=== PATIENT | female | born 1965 | race Caucasian/White ===

== ENCOUNTER 2020-07-09 13:08 | Outpatient (REF) | payer OTHER, SELFPAY ==
--- NOTE | ~2020-07-09 | MM_ITS ---
EXAMINATION: MM SCREENING DIGITAL BREAST TOMOSYNTHESIS, BILATERAL CLINICAL INFORMATION: Screening. Asymptomatic. The lifetime risk of breast cancer based on the Tyrer-Cuzick Model is 8%. COMPARISON: Mammography: 07/04/2019, 12/10/2017, 03/06/2016 TECHNIQUE: Digital breast tomosynthesis is performed in both the craniocaudal and mediolateral oblique views along with computer-aided detection (CAD). Synthesized 2D images are generated from the tomosynthesis. FINDINGS: There are scattered areas of fibroglandular density (ACR BI-RADS breast composition Category b). There are no significant masses, abnormal calcifications, or other abnormalities. Parenchymal pattern is similar to prior studies. No developing density. No significant changes. MM/MM tomosynthesis screening BI IMPRESSION: No mammographic evidence of malignancy. ASSESSMENT: BI-RADS 1: Negative RECOMMENDATION: Routine annual mammography screening. This patient's information was entered into a reminder system with a target due date for their next mammogram.
== END 2020-07-09 13:09 | disposition home or self-care (01) ==
LOC: HO.MAMMO 13:08
PROVIDERS: PCP Internal Medicine; Visit Provider Internal Medicine
DX: Z12.31 Encounter for screening mammogram for malignant neoplasm of breast (principal)
CPT/HCPCS: 77063; 77067

== ENCOUNTER 2020-07-22 11:52 | Outpatient (REF) | payer OTHER, SELFPAY ==
[2020-07-22 13:31] LABS: Basophils Percent Auto 0.4 % (0-2); Eosinophils Percent Auto 1.7 % (0-4); Hematocrit 38.3 % (37-47); Hemoglobin 11.9 g/dl (12.0-16.0); Imm Gran Abs Auto 0.01 X10*3/uL (0.00-0.03); Imm Gran Pct Auto 0.4 % (0.0-0.4); Lymphocytes Absolute Auto 0.9 X10*3/uL (1.2-4.9); Lymphocytes Percent Auto 40.9 % (20-40); MANUAL DIFF FLAG SCAN; Mean Corpuscular HGB Conc 31.1 g/dl (31.0-35.0); Mean Corpuscular Hemoglobin 30.3 pg (27.0-33.0); Mean Corpuscular Volume 97.5 fL (80-98); Mean Platelet Volume 9.2 fL (9.4-12.3); Monocytes Absolute Auto 0.3 X10*3/uL (0.1-1.2); Neutrophils Percent Auto 43.6 % (45-73); Platelet Count 287 X10*3/uL (160-400); Red Blood Count 3.93 X10*6/uL (4.20-5.50); SCAN SMEAR FLAG 1
[2020-07-22 13:32] LABS: White Blood Count 2.3 X10*3/uL (4.8-10.8)
[2020-07-22 14:05] LABS: Alanine Aminotransferase 16 U/L (0-31); Albumin Level 4.2 g/dL (3.5-5.0); Alkaline Phosphatase 81 U/L (39-117); Anion Gap 12 (12-20); Aspartate Amino Transferase 17 U/L (5-31); Bilirubin Total 0.8 mg/dL (0.0-1.0); Blood Urea Nitrogen 13 mg/dL (9-16); Calcium 9.1 mg/dL (8.4-10.2); Carbon Dioxide 27 mmol/L (22-29); Chloride 107 mmol/L (96-108); Cholesterol 229 mg/dL; Estimated Glomerular Filt Rate > 60; Glucose Random 82 mg/dL (60-115); HDL Cholesterol 75 mg/dL; LDL Cholesterol Calculated 142 mg/dl; Sodium 141 mmol/L (135-145); Total Protein 6.8 g/dL (6.5-8.0); Triglycerides 61 mg/dL
[2020-07-22 14:10] LABS: Glucose Urine UA NEG (NEG); Leukocyte Esterase Urine NEG (NEG); Nitrite Urine NEG (NEG); PH 5.5 (5.0-8.0); Specific Gravity - Urine >= 1.030 (1.005-1.025); Urine Blood TRACE (NEG); Urine Ketones NEG (NEG); Urine Protein NEG (NEG-TRACE)
[2020-07-22 14:15] LABS: Appearance Urine HAZY; Color Urine YELLOW
[2020-07-22 14:28] LABS: Free T4 (Free Thyroxine) 0.74 ng/dL (0.71-1.85); Thyroid Stimulating Hormone 1.86 uIU/mL (0.32-4.0); Vitamin D 25-OH Total 8.1 ng/mL (>30)
[2020-07-22 14:36] LABS: Folate 14.9 ng/mL (> or = 4.0); Vitamin B12 200 pg/mL (200-900)
[2020-07-22 14:59] LABS: Mucus Urine 3+ /LPF; RBC Urine 0-2 /HPF (0); Squamous Epithelial Cell Urine 1+ /LPF
== END 2020-07-22 11:53 | disposition home or self-care (01) ==
LOC: HO.LAB 11:52
PROVIDERS: PCP Internal Medicine; Visit Provider Internal Medicine
DX: E78.00 Pure hypercholesterolemia, unspecified (principal); D51.0 Vitamin B12 deficiency anemia due to intrinsic factor deficiency
CPT/HCPCS: 36415; 80053; 80061; 81001; 82306; 82607; 82746; 84439; 84443; 85025; 85060

== ENCOUNTER 2020-09-30 13:29 | Outpatient (REF) | payer OTHER, SELFPAY ==
[2020-10-08 09:27] LABS: HPV mRNA E6/E7 rflx Not Detected (Not Detected)
== END 2020-09-30 13:30 | disposition home or self-care (01) ==
LOC: HO.LNP 13:29
PROVIDERS: Visit Provider Advanced Practice Midwife
DX: Z12.4 Encounter for screening for malignant neoplasm of cervix (principal); Z11.51 Encounter for screening for human papillomavirus (HPV)
CPT/HCPCS: 87624; 88142

== ENCOUNTER → 2020-09-30 15:07 | Outpatient (BNVA) | payer OTHER, SELFPAY | PROVIDERS: Visit Provider Advanced Practice Midwife ==

== ENCOUNTER → 2021-05-10 13:17 | Outpatient (BNVA) | payer OTHER, SELFPAY | PROVIDERS: PCP Internal Medicine; Referring Provider Internal Medicine; Visit Provider Nurse Practitioner | DX: D12.6 Benign neoplasm of colon, unspecified (principal) | CPT/HCPCS: 99212 ==

== ENCOUNTER 2021-07-08 16:57 | Emergency (ER) | payer OTHER, SELFPAY ==
--- NOTE | ~2021-07-08 | CT_ITS ---
EXAMINATION: CT HEAD WITHOUT CONTRAST CT FACE WITHOUT CONTRAST CT CERVICAL SPINE WITHOUT CONTRAST CLINICAL INFORMATION: Fall. Head injury. Laceration. Headache. COMPARISON: No relevant prior imaging. TECHNIQUE: Gas Distribution Supervisor images were obtained. CT imaging of the head, face, and cervical spine was performed without contrast. Data was reformatted into multiplanar images at the acquisition workstation. This CT examination was performed using dose optimization techniques as appropriate, including one or more of the following: Automated exposure control, iterative reconstruction, and adjustment of technique factors (mA and/or kVp) according to patient size (this includes techniques or standardized protocols for targeted exams where dose is matched to indication/reason for exam). DLP: 1242 mGy-cm. FINDINGS: Head: There is no acute intracranial hemorrhage or abnormal extra-axial collection. No intracranial mass effect or midline shift. Lateral and third ventricles are normal. No hydrocephalus. Alberto-white matter differentiation is preserved and there is no evidence of acute territorial infarct. The calvarium and skull base are intact. Mastoid air cells and middle ear cavities are well aerated. No active paranasal sinus disease. Face: Nasal bones, zygomatic arches, and pterygoid processes are intact. There is no acute mandibular fracture. Globes and extraocular muscles are symmetric. No abnormal retrobulbar mass or inflammation. Lamina papyracea and orbital floors are intact. Orbital apices are unremarkable. There is minimal mucosal thickening within the alveolar recess of the left maxillary sinus. Otherwise no active paranasal sinus disease. All of the major paranasal sinus drainage pathways are patent. Cervical spine: Alignment is normal. Vertebral body heights are preserved. No acute fracture. No abnormal prevertebral soft tissue swelling. There is degenerative arthrosis of the articular facet joints at multiple levels within the cervical spine, greatest at C2-C3 on the right and at C3-C4 and C4-C5 on the left. Grossly no evidence of canal compromise. Visualized soft tissues of the neck are normal. Lung apices are clear. CT/CT facial bones wo con IMPRESSION: Unremarkable examination. No acute intracranial hemorrhage. No acute facial or cervical spine fracture.
[2021-07-08 17:04] VITALS: BP 141/69; PULSE 77; RESP 16; TEMP 37; O2SAT 99; BMI 25.7
--- NOTE | 2021-07-08 20:27 | ED_ITS ---
HPI - Fall General Chief Complaint: Fall <JANETH Calvillo - Last Filed: 07/08/21 22:07> Stated Complaint: needs stiches left upper brow <JANETH Calvillo - Last Filed: 07/08/21 22:07> Time Seen by Provider: 07/08/21 19:04 <JANETH Calvillo - Last Filed: 07/08/21 22:07> Source: patient <JANETH Calvillo - Last Filed: 07/08/21 22:07> Mode of arrival: ambulatory <JANETH Calvillo - Last Filed: 07/08/21 22:07> Limitations: no limitations <JANETH Calvillo - Last Filed: 07/08/21 22:07> History of Present Illness HPI Narrative: This is a 55-year-old female past medical history significant for anxiety, hypertension presenting to the emergency department status post trip and fall earlier with laceration to the left temporal region, and neck stiffness Patient is not on blood thinners. When she fell she did not lose consciousness. He tells me she hit her head on the pavement in front of her. She stresses to me that this was a trip and fall. No preceding symptoms. She went to urgent care who told her to come to the emergency department for imaging. She denies headache, dizziness, nausea, vomiting, vision changes, disequilibrium, chest pain, shortness of breath. <JANETH Calvillo - Last Filed: 07/08/21 22:07> MD complaint: fall <JANETH Calvillo - Last Filed: 07/08/21 22:07> Onset (ago): hour(s) (6) <JANETH Calvillo - Last Filed: 07/08/21 22:07> Fall from: standing <JANETH Calvillo - Last Filed: 07/08/21 22:07> Fall witnessed: no <JANETH Calvillo - Last Filed: 07/08/21 22:07> Place fall occurred: home <JANETH Calvillo Last Filed: 07/08/21 22:07> Loss of consciousness: none <JANETH Calvillo Last Filed: 07/08/21 22:07> Prolonged down time: no <JANTEH Calvillo Last Filed: 07/08/21 22:07> Symptoms prior to fall: none <JANETH Calvillo Last Filed: 07/08/21 22:07> Context: tripped/slipped <JANETH Calvillo Last Filed: 07/08/21 22:07> Location of injury: head and face (left temoral region ) <JANETH Calvillo Last Filed: 07/08/21 22:07> Related Data Home Medications: Home Medications Medication Instructions Recorded Confirmed amitriptyline 10 mg tablet 10 mg PO BEDTIME 04/13/21 06/24/21 Previous Rx's Medication Instructions Recorded cholecalciferol (vitamin D3) 1,250 1,250 mcg PO QWEEK 90 Days #13 cap 01/13/21 mcg (50,000 unit) capsule cyanocobalamin (vitamin B-12) 1,000 mcg SUBCUT .COMPLEX 90 Days 01/13/21 1,000 mcg/mL injection kit #6 kit peg 3350-electrolytes 236 240 ml PO Q10M 1 Days #4000 ml 05/10/21 gram-22.74 gram-6.74 gram-5.86 gram solution (Golytely) hydrochlorothiazide 12.5 mg tablet 12.5 mg PO QAM 90 Days #90 tab 06/21/21 sertraline 50 mg tablet 50 mg PO DAILY 30 Days #30 tab 06/24/21 doxycycline hyclate 100 mg tablet 100 mg PO BID 7 Days #14 tab 07/08/21 <JANETH Calvillo Last Filed: 07/08/21 22:07> Allergies/Adverse Reactions: Allergies Allergy/AdvReac Type Severity Reaction Status Date / Time bupropion AdvReac Intermediate palpitation Verified 07/08/21 17:04 s <JANETH Calvillo Last Filed: 07/08/21 22:07> Review of Systems Review of Systems: Constitutional : No Weight loss, No Fever, No Chills, No Fatigue, No Malaise ENT/Mouth : No sore throat, No Rhinorrhea Eyes: No Eye Pain, No Swelling, No Redness Cardiovascular : No Chest Pain, No SOB, No Dyspnea on Exertion, No Orthopnea, No Edema, No Palpitations Respiratory : No Cough, No Sputum, No Wheezing Gastrointestinal : No Nausea, No Vomiting, No Diarrhea, No Constipation, No abdominal Pain, No Hematochezia, No Melena Genitourinary : No Dysuria, No Urinary Frequency, No Hematuria, Musculoskeletal : No joint pain, No Myalgias, No Joint Swelling Skin : No Skin Lesions, No rash, +laceration Neuro : No Weakness, No Numbness, No Dizziness, No Headache Psych : No Anxiety/Panic, No Depression All other systems reviewed and are negative <JANETH Calvillo - Last Filed: 07/08/21 22:07> Yes all other systems are reviewed and are negative <JANETH Calvillo - Last Filed: 07/08/21 22:07> [facility] Past Medical History Attestation statement: The following information was validated with the patient. <JANETH Calvillo - Last Filed: 07/08/21 22:07> Source: old records reviewed and nursing notes reviewed <JANETH Calvillo - Last Filed: 07/08/21 22:07> Medical History: Medical History Anxiety and depression Carpal tunnel syndrome Herpes genitalis Hypercholesterolemia Leukopenia Malignant melanoma Pernicious anemia TMJ (dislocation of temporomandibular joint) Vitamin D deficiency <JANETH Calvillo - Last Filed: 07/08/21 22:07> Surgical History: Surgical History History of section History of endometrial ablation History of removal of skin mole History of tubal ligation <JANETH Calvillo - Last Filed: 07/08/21 22:07> Family History Family History: Family History Father Lung cancer Asbestos exposure Mother Myocardial infarction Heart disease Maternal Uncle Skin cancer Paternal Aunt Hx of blood clots Paternal Uncle Hx of blood clots <JANETH Calvillo - Last Filed: 07/08/21 22:07> Social History Social History: Social History Housing: House Alcohol intake: current Alcohol intake frequency: a few times a week Patient Tobacco Use Status: Former Tobacco user Years Smoked: quit 25 years old e-Cigarette/Vaping Use: Never Used Second Hand Smoke Exposure: No Advance Directives: No Advance Directives Information Provided: Yes service: No Current occupational status: employed <JANETH Calvillo - Last Filed: 07/08/21 22:07> Physical Exam Vital Signs: Vital Signs: Last Vital Signs Temp 98.3 F 07/08/21 20:58 Pulse 64 07/08/21 20:58 Resp 18 07/08/21 20:58 BP 158/75 H 07/08/21 20:58 Pulse Ox 97 07/08/21 20:58 BMI result Body Mass Index 25.7 VSS <JANETH Calvillo - Last Filed: 07/08/21 22:07> Appearance: Alert.? Oriented X3.? No acute distress.? Head: Normocephalic, atraumatic, no step-offs or deformities Eyes: Pupils equal, round and reactive to light.? Extraocular movements intact. ENT: Pharynx normal.? Neck: Normal inspection.? Neck supple.? CVS: Normal heart rate and rhythm.? Pulses normal.? Respiratory: No respiratory distress.? Breath sounds normal.? Abdomen: Soft and nontender.? Skin: Skin warm and dry.? Normal skin color.? Normal skin turgor.?+ irregular laceration to the low left eyebrow/left temporal region measuring approximately 4 cm. Extremities: No lower extremity edema.? No calf ttp. 5/5 strength to bilateral upper and lower extremities Back: No midline tenderness, no C-spine tenderness, full range of motion, no CVA tenderness bilaterally Neuro: Oriented X 3.? No motor deficit.? No sensory deficit. CN 2-12 intact. Normal tandem gait, normal coordination. Normal [id number], [id number]. <JANETH Calvillo - Last Filed: 07/08/21 22:07> Course Reevaluation(s) Reevaluation #1: CTs of head, cervical spine and facial bones within normal limits. Sutu red patient's laceration without issues. Patient tolerated procedure well. Advised her to return in 5-7 days for suture removal. Will send her home on prophylactic doxycycline. Comfortable discharge home <JANETH Calvillo - Last Filed: 07/08/21 22:07> Time: 22:06 <JANETH Calvillo - Last Filed: 07/08/21 22:07> Procedures Laceration Laceration 1: Site: face <JANETH Calvillo - Last Filed: 07/08/21 22:07> Side (If applicable): left <JANETH Calvillo - Last Filed: 07/08/21 22:07> Size (cm): 4 <JANETH Calvillo - Last Filed: 07/08/21 22:07> Description: linear <JANETH Calvillo - Last Filed: 07/08/21 22:07> Depth: simple, single layer <JANETH Calvillo - Last Filed: 07/08/21 22:07> Local Anesthetic: lidocaine 2% <JANETH Calvillo - Last Filed: 07/08/21 22:07> Amount of anesthesia used (mL): 5 <JANETH Calvillo - Last Filed: 07/08/21 22:07> Pre-repair: wound explored, irrigated extensively and deep structures intact <JANTEH Calvillo - Last Filed: 07/08/21 22:07> Skin layer closed with: vicryl <JANETH Calvillo - Last Filed: 07/08/21 22:07> Size (cm): 6-0 <JANETH Calvillo - Last Filed: 07/08/21 22:07> Number of sutures: 3 <JANETH Calvillo - Last Filed: 07/08/21 22:07> Technique: simple, interrupted <JANETH Calvillo - Last Filed: 07/08/21 22:07> MDM - Fall MDM Narrative Medical decision making narrative: 2041 55 yo f pmhx anxiety, htn presents with neck discomfort and laceration overlying the left eyebrow/temporal region status post trip and fall. On physical examination neuro exam nonfocal. Regular rate and rhythm. Lungs clear. Abdomen soft nontender nondistended. Patient ambulating with steady gait. There is an irregularly-shaped 4 cm laceration overlying the left eyebrow/temporal region. Bleeding well controlled. Plan at this time is to obtain CT of the head and facial bones as well as cervic al spine. Will rule out fractures and dislocations and ICH. Although unlikely. I will also suture patient's laceration. Obtain consent verbally from patient. She agrees to his this procedure. Warned her risks include infection, scarring. <JANETH Calvillo - Last Filed: 07/08/21 22:07> Medical Records Attestation: I reviewed the patient's medical records. <JANETH Calvillo - Last Filed: 07/08/21 22:07> Lab Data Attestation: I reviewed the patient's lab results. <JANETH Calvillo Last Filed: 07/08/21 22:07> Critical Care Time Critical Care Time Critical Care Time: No <JANETH Calvillo - Last Filed: 07/08/21 22:07> Discharge Plan Discharge Clinical Impression: Fall, Laceration of face, Concussion <JANETH Calvillo - Last Filed: 07/08/21 22:07> Patient Disposition: Home, Self-Care <JANETH Calvillo Last Filed: 07/08/21 22:07> Instructions: Care For Your Stitches (ED), Laceration (DC) <JANETH Calvillo Last Filed: 07/08/21 22:07> Additional Instructions: Take your medications as prescribed. If you were prescribed antibiotics today, it is important that you take your medication to their entirety, do not skip any doses, do not finish them early. Follow-up with your primary care provider this week. Return to the emergency department with new or worsening symptoms. Such as fevers, chills, chest pain, shortness of breath, nausea, vomiting, dizziness, headache, vision changes, lethargy Return in 3-5 days for suture removal. In case of emergency call 911 CT/CT cervical spine wo con IMPRESSION: Unremarkable examination. No acute intracranial hemorrhage. No acute facial or cervical spine fracture. <JANETH Calvillo - Last Filed: 07/08/21 22:07> Prescriptions: New doxycycline hyclate 100 mg tablet 100 mg PO BID 7 Days Qty: 14 0RF No Action hydrochlorothiazide 12.5 mg tablet 12.5 mg PO QAM 90 Days Qty: 90 2RF cyanocobalamin (vitamin B-12) 1,000 mcg/mL kit 1,000 mcg subcut .COMPLEX 90 Days Qty: 6 0RF Rx Instructions: 1000 mcg once a week for 4 weeks then once a month cholecalciferol (vitamin D3) 1,250 mcg (50,000 unit) capsule 1,250 mcg PO QWEEK 90 Days Qty: 13 2RF sertraline 50 mg tablet 50 mg PO DAILY 30 Days Qty: 30 4RF amitriptyline 10 mg tablet 10 mg PO BEDTIME 0RF peg 3350-electrolytes [Golytely] 236-22.74-6.74 -5.86 gram recon soln 240 ml PO Q10M 1 Days Qty: 4000 0RF Rx Instructions: until fecal effluent is clear; do not exceed a total volume of 2,000 mL <JANETH Calvillo - Last Filed: 07/08/21 22:07> Referrals: Physician,Unknown J [Primary Care Provider] - 2 days <JANETH Calvillo - Last Filed: 07/08/21 22:07> Stand Alone Forms: Work/School Release <JANETH Calvillo - Last Filed: 07/08/21 22:07> Interventions: ED Discharge Assessment Last Done: 07/08/21 22:34 <JANETH Calvillo - Last Filed: 07/08/21 22:07> Discharge Date/Time: 07/08/21 22:35 <JANETH Calvillo - Last Filed: 07/08/21 22:07>
[2021-07-08] MEDS: Lidocaine HCl 2 % MPF 5 ML VIAL SUBCUT (20:35)
[2021-07-08 20:58] VITALS: BP 158/75; PULSE 64; RESP 18; TEMP 36.8; O2SAT 97
[2021-07-08] MEDS: Diphth,Pertus(ACell),Tet Adult 0.5 ML SYRINGE IM (22:25)
== END 2021-07-08 22:35 | disposition home or self-care (01) ==
PROVIDERS: Emergency Provider Emergency Medicine
DX: S01.81XA Laceration without foreign body of other part of head, initial encounter (principal); W01.198A Fall on same level from slipping, tripping and stumbling with subsequent striking against other object, initial encounter; Y93.01 Activity, walking, marching and hiking; Y92.014 Private driveway to single-family (private) house as the place of occurrence of the external cause; Y99.9 Unspecified external cause status
CPT/HCPCS: 12013; 70450; 70486; 72125; 90471; 90715; 99284

== ENCOUNTER 2021-07-11 09:57 | Outpatient (REF) | payer OTHER, SELFPAY ==
[2021-07-11 10:27] LABS: MANUAL DIFF FLAG NO
[2021-07-11 11:00] LABS: Basophils Percent Auto 0.5 % (0-2); Hematocrit 41.4 % (37.0-47.0); Imm Gran Abs Auto 0.02 X10*3/uL (0.00-0.03); Imm Gran Pct Auto 0.5 % (0.0-0.4); Immature Retic Fraction 5.6 % (3.0-15.9); Lymphocytes Percent Auto 27.2 % (20-40); Mean Corpuscular HGB Conc 31.4 g/dl (31.0-35.0); Mean Corpuscular Hemoglobin 29.9 pg (27.0-33.0); Mean Corpuscular Volume 95.2 fL (80.0-98.0); Monocytes Absolute Auto 0.5 X10*3/uL (0.1-1.2); Monocytes Percent Auto 12.3 % (2-11); Neutrophils Absolute Auto 2.2 x10*3/uL (2.0-8.3); Neutrophils Percent Auto 58.5 % (45-73); Platelet Count 305 X10*3/uL (160-400); Red Blood Count 4.35 X10*6/uL (4.20-5.50); Red Cell Distribution Width 11.9 % (11.0-16.0); Retic HGB Equivalent 34.7 pg (30.0-35.0); Reticulocyte Percent 1.3 % (0.5-1.8); Reticulocytes Absolute 0.054 X10*6/uL (0.026-0.095); White Blood Count 3.8 X10*3/uL (4.8-10.8)
[2021-07-11 11:24] LABS: Alanine Aminotransferase 36 U/L (0-31); Albumin Level 4.5 g/dL (3.5-5.0); Alkaline Phosphatase 93 U/L (39-117); Anion Gap 13 (12-20); Aspartate Amino Transferase 27 U/L (5-31); Bilirubin Total 0.4 mg/dL (0.0-1.0); Blood Urea Nitrogen 15 mg/dL (9-16); Calcium 10.1 mg/dL (8.4-10.2); Carbon Dioxide 28 mmol/L (22-29); Chloride 103 mmol/L (96-108); Cholesterol 268 mg/dL; Estimated Glomerular Filt Rate > 60; Glucose Random 101 mg/dL (60-115); HDL Cholesterol 74 mg/dL; Iron 118 mcg/dL (30-160); LDL Cholesterol Calculated 174 mg/dl; Percent Iron Saturation 34 % (15-50); Potassium 4.8 mmol/L (3.3-5.1); Sodium 139 mmol/L (135-145); Total Iron Binding Capacity 343 mcg/dL (228-428); Total Protein 7.7 g/dL (6.5-8.0); Triglycerides 104 mg/dL; Unsaturated Iron Binding 225 ug/dL
[2021-07-11 11:50] LABS: Ferritin 59 ng/mL (10-250); Free T4 (Free Thyroxine) 0.89 ng/dL (0.71-1.85); Thyroid Stimulating Hormone 1.83 uIU/mL (0.32-4.0)
[2021-07-11 12:12] LABS: Folate 8.7 ng/mL (> or = 4.0); Vitamin B12 334 pg/mL (200-900)
== END 2021-07-11 09:58 | disposition home or self-care (01) ==
LOC: HO.LAB 09:57
PROVIDERS: PCP Internal Medicine; Visit Provider Internal Medicine
DX: E78.00 Pure hypercholesterolemia, unspecified (principal); I10 Essential (primary) hypertension
CPT/HCPCS: 36415; 80053; 80061; 82306; 82607; 82728; 82746; 83540; 84439; 84443; 85025; 85045

== ENCOUNTER 2021-10-10 13:30 | Outpatient (REF) | payer OTHER, SELFPAY ==
[2021-10-11 05:34] LABS: CT PCR NOT DETECTED (Not Detect.); NG PCR NOT DETECTED (Not Detect.)
== END 2021-10-10 13:31 | disposition home or self-care (01) ==
LOC: HO.LAB 13:30
PROVIDERS: Visit Provider Advanced Practice Midwife
DX: Z11.3 Encounter for screening for infections with a predominantly sexual mode of transmission (principal); Z20.2 Contact with and (suspected) exposure to infections with a predominantly sexual mode of transmission
CPT/HCPCS: 87491; 87591

== ENCOUNTER 2021-10-24 15:21 | Outpatient (REF) | payer OTHER, SELFPAY ==
--- NOTE | ~2021-10-24 | MM_ITS ---
EXAMINATION: MM SCREENING DIGITAL BREAST TOMOSYNTHESIS, BILATERAL CLINICAL INFORMATION: Screening. Asymptomatic. The lifetime risk of breast cancer based on the Tyrer-Cuzick Model is 6%. COMPARISON: Mammography: 07/09/2020, 07/04/2019, 12/10/2017, 03/06/2016 TECHNIQUE: Digital breast tomosynthesis is performed in both the craniocaudal and mediolateral oblique views along with computer-aided detection (CAD). Synthesized 2D images are generated from the tomosynthesis. FINDINGS: There are scattered areas of fibroglandular density (ACR BI-RADS breast composition Category b). Parenchymal pattern is similar to prior exams. There is no interval mass or architectural abnormality. No abnormal calcifications. The axilla and skin contours are unremarkable. MM/MM tomosynthesis screening BI IMPRESSION: No mammographic evidence of malignancy. ASSESSMENT: BI-RADS 1: Negative RECOMMENDATION: Routine annual mammography screening. This patient's information was entered into a reminder system with a target due date for their next mammogram.
== END 2021-10-24 15:22 | disposition home or self-care (01) ==
LOC: HO.MAMMO 15:21
PROVIDERS: PCP Internal Medicine; Visit Provider Advanced Practice Midwife
DX: Z12.31 Encounter for screening mammogram for malignant neoplasm of breast (principal)
CPT/HCPCS: 77063; 77067

== ENCOUNTER 2022-01-09 09:01 | Day surgery (SDC) | payer OTHER, SELFPAY ==
[2022-01-04 11:09] VITALS: BMI 27.1
--- NOTE | 2022-01-09 09:27 | MHC.SHP ---
Pre-Procedural Eval Section A Date of Service: 01/09/22 The patient is an INPATIENT: No The History & Physical has been completed within 30 days and I have reviewed it.: No Section B Chief Complaint: Screening, Hx of Benign neoplasm of colon, Details of Present Illness: Colon cancer screening, history of colon polyps Relevant Family History (Specify if Yes): No Relevant Social History: Tobacco Use (Former smoker) Present Medications: see Short Stay Collaborative assessment Medical History: Significant History (Anxiety and depression Carpal tunnel syndrome Herpes genitalis Hypercholesterolemia Leukopenia Malignant melanoma Pernicious anemia TMJ (dislocation of temporomandibular joint) Vitamin D deficiency) History of Previous Operations: Relevant previous surgery/procedure and date(s) (History of section History of endometrial ablation History of removal of skin mole History of tubal ligation) Allergies: Allergies Allergy/AdvReac Type Severity Reaction Status Date / Time bupropion AdvReac Intermediate palpitation Verified 10/10/21 13:03 s Review of Systems Sugical H&P ROS: Negative: Constitution, Respiratory and Gastrointestinal Exam Surgical H&P Exam: Normal: Heart, Normal: Lungs, Normal: Extremities and Normal: Abdomen Plan Diagnosis/Plan: Unchanged I have reviewed the history and physical and performed a pertinent physical examination on my patient. No changes have occurred unless specified.
--- NOTE | 2022-01-09 09:43 | P.CONAN_ITS ---
[facility] Active Problems Active Problems: All Active Problems (Updated 10/10/21 @ 13:27 by Marifer Joy) Scabies (Acute) Encounter for annual routine gynecological examination (Acute) Annual physical exam (Acute) Generalized anxiety disorder (Acute) Tubular adenoma of colon (Acute) Ganglion cyst of tendon sheath of right hand (Acute) Hypertension (Acute) Laceration of face (Acute) Malignant melanoma (Acute) Vitamin D deficiency (Acute) Pernicious anemia (Acute) Hypercholesterolemia (Acute) Past Medical History Medical History Anxiety and depression Carpal tunnel syndrome Herpes genitalis Hypercholesterolemia Leukopenia Malignant melanoma Pernicious anemia TMJ (dislocation of temporomandibular joint) Vitamin D deficiency Family History Family History Father Lung cancer Asbestos exposure Mother Myocardial infarction Heart disease Maternal Uncle Skin cancer Paternal Aunt Hx of blood clots Paternal Uncle Hx of blood clots Family history of problems with anesthesia: No Surgical History Surgical History (Updated 01/04/22 @ 11:08 by Vidhya Scherer RN) H/O colonoscopy History of section History of endometrial ablation History of removal of skin mole History of tubal ligation History of Problems with Anesthesia: No Social History Social History Housing: House Are you a primary coronary care unit nurse to a significant other at home: No Do you presently have visiting nurse or other home services: No Alcohol intake: current Alcohol intake frequency: 0-2 drinks per day Patient Tobacco Use Status: Former Tobacco user Years Smoked: quit 25 years old e-Cigarette/Vaping Use: Never Used Second Hand Smoke Exposure: No Use of substances other than those prescribed or required for medical reasons: Yes Substance Use Frequency: Daily Have you been hit, kicked, punched, or otherwise hurt by someone within the past year? If so, by whom?: No Are you DNR?: No Advance Directives: No Advance Directives Information Provided: Yes Recently lost weight without trying: No Eating poorly because of decreased appetite: No Nutrition Risks: No Nutritional Risk Patient : No service: No Current occupational status: employed Sexual orientation: Straight/Heterosexual Gender identity: Female Meds Allergies Allergy/AdvReac Type Severity Reaction Status Date / Time bupropion AdvReac Intermediate palpitation Verified 10/10/21 13:03 s Active Medications: Current Medications Lactated Ringer's (Lr) 1,000 mls @ 50 mls/hr IVCONT .Q20H THANIA Exam Exam Date and Time: January 09, 2022 0943 Height,Weight and Vital Signs: Height 5 ft 3 in Weight 69.4 kg Airway Mallampati Class: II TM Dist: >3cm Neck ROM: Full Heart: rrr Lungs: cta Assessment and Plan Assessment Anesthesia Assessment: Anesthesia Plan Discussed and Chart Reviewed Final Anesthetic Review Family History of Problems with Anesthesia: No History of Problems with Anesthesia: No NPO: Yes ASA Class: II Final Preanesthetic Review: No Changes in Pt Med Stat, Meds/Allgs Chart Reviewed and Consent Obtained/Reviewed Patient Risk: Intermediate Procedure Risk: Intermediate Anesthetic Plan Anesthetic Plan: MAC: Disposition: Standard PACU
[2022-01-09 09:51] VITALS: BP 136/61; PULSE 63; RESP 18; TEMP 36.3; O2SAT 99; BMI 27.1
[2022-01-09] MEDS: Lactated Ringers 1,000 ML 50 ML IVCONT (09:57)
--- NOTE | 2022-01-09 10:07 | W.PM.OPN ---
Operative Note Operative Note Date of Service: 01/09/22 Narrative: Pre-op diagnosis: Colon cancer screening, history of colon polyps Post-op diagnosis:?other (Colon polyp, diverticulosis, hemorrhoids) Procedure: COLONOSCOPY TILL CECUM WITH BIOPSIES Consent: Indications for the procedure and potential complications of bleeding, perforation, reaction to medications and missed diagnosis were discussed with the patient and informed consent was obtained. Instrument: Olympus PCF H 190 L variable stiffness pediatric colonoscope Monitoring: Vital signs and clinical assessment, intermittent blood pressure monitoring, continuous EKG monitoring, Pulse oximetry and Carbon Dioxide monitoring were done throughout the procedure. Colon withdrawl time was 19 minutes. Procedure: The patient was placed in the left lateral decubitis position and pre-procedure medications were administered. After a digital rectal examination of the ano-rectum, the video colonoscope was inserted into the rectum and advanced through the colon to the cecum. The colonoscope was slowly withdrawn in a retrograde panoramic fashion and the colon mucosa was carefully examined including a retroflexed view of the rectum. Findings and interventions are described below. Procedure Difficulty:? Colon was long and there was some loop formation.? LLQ pressure was applied to intubate the cecum Findings: Terminal Ileum: Not evaluated Cecum:? A 9-10 mm sessile polyp - removed with a cold bx (unable to snare the polyp due to location) Ascending Colon:? Normal Transverse Colon:? Normal Descending Colon:? Moderate diverticulosis Sigmoid Colon:? Moderate diverticulosis Rectum:? Normal Ano-rectum:? Moderate internal hemorrhoids and hypertrophied anal papilla with a small fissure Colon preparation: Excellent ? Impression and Post Procedure Diagnosis: Colonoscopy Findings: One medium sized polyp removed Moderate diverticulosis seen in the left colon Moderate hemorrhoids on retroflexed exam. Plan: Await pathology results Patient has an appointment on 01/23/22 in the GI Clinic with? Indira Null NP. Repeat Colonoscopy interval based on path results - in 3 years if polyp is adenomatous and 5 years if polyps is hyperplastic (due to hx of colon polyps). Above findings were reviewed with the patient and colon polyps and diverticulosis handouts were given in the discharge area Surgeon: Marlena Thibodeaux MD Anesthesia:?MAC Was an Patrol Captain used for this Procedure?:?Yes Patrol Captain:?Angi Osei Estimated blood loss (mL):?0 Pathology:?other (A: polyp cecum) Condition:?stable Disposition:?PACU
[2022-01-09 10:40] VITALS: BP 145/42; PULSE 74; RESP 16; TEMP 36.5; O2SAT 100
[2022-01-09 10:55] VITALS: BP 147/68; PULSE 60; RESP 16; TEMP 36.6; O2SAT 98
== END 2022-01-09 12:30 | disposition home or self-care (01) ==
PROVIDERS: PCP Internal Medicine; Visit Provider Internal Medicine Gastroenterology
PROC: 0DJD8ZZ Inspection of Lower Intestinal Tract, Via Natural or Artificial Opening Endoscopic (ICD-10-PCS; CPT 45378; principal; 2022-01-09 10:10)
DX: Z12.11 Encounter for screening for malignant neoplasm of colon (principal); D12.0 Benign neoplasm of cecum; K57.30 Diverticulosis of large intestine without perforation or abscess without bleeding; K64.8 Other hemorrhoids; K60.2 Anal fissure, unspecified; Z86.010 Personal history of colon polyps
CPT/HCPCS: 45380; 88305

== ENCOUNTER → 2022-01-24 11:42 | Outpatient (BNVA) | payer OTHER, SELFPAY | PROVIDERS: PCP Internal Medicine; Visit Provider Nurse Practitioner | DX: D12.6 Benign neoplasm of colon, unspecified (principal) | CPT/HCPCS: 99212 ==

== ENCOUNTER 2022-07-18 09:09 | Outpatient (REF) | payer OTHER, SELFPAY ==
[2022-07-18 11:31] LABS: MANUAL DIFF FLAG NO
[2022-07-18 11:57] LABS: Eosinophils Percent Auto 1.3 % (0-4); Estimated Average Glucose 103 mg/dL; Hematocrit 40.1 % (37.0-47.0); Hemoglobin 12.9 g/dl (12.0-16.0); Hemoglobin A1c % 5.2 %; Imm Gran Abs Auto 0.01 X10*3/uL (0.00-0.03); Imm Gran Pct Auto 0.3 % (0.0-0.4); Lymphocytes Absolute Auto 1.2 X10*3/uL (1.2-4.9); Mean Corpuscular HGB Conc 32.2 g/dl (31.0-35.0); Mean Corpuscular Hemoglobin 30.6 pg (27.0-33.0); Mean Corpuscular Volume 95.2 fL (80.0-98.0); Mean Platelet Volume 9.2 fL (9.4-12.3); Monocytes Absolute Auto 0.4 X10*3/uL (0.1-1.2); Monocytes Percent Auto 11.4 % (2-11); Neutrophils Absolute Auto 1.5 x10*3/uL (2.0-8.3); Platelet Count 345 X10*3/uL (160-400); Red Blood Count 4.21 X10*6/uL (4.20-5.50); Red Cell Distribution Width 11.9 % (11.0-16.0); White Blood Count 3.2 X10*3/uL (4.8-10.8)
[2022-07-18 12:38] LABS: Alanine Aminotransferase 33 U/L (0-31); Albumin Level 4.2 g/dL (3.5-5.0); Alkaline Phosphatase 85 U/L (39-117); Anion Gap 12 (12-20); Aspartate Amino Transferase 22 U/L (5-31); Bilirubin Total 0.6 mg/dL (0.0-1.0); Blood Urea Nitrogen 18 mg/dL (9-16); Calcium 9.4 mg/dL (8.4-10.2); Carbon Dioxide 29 mmol/L (22-29); Chloride 104 mmol/L (96-108); Cholesterol 272 mg/dL; Estimated Glomerular Filt Rate > 60; Glucose Random 92 mg/dL (60-115); HDL Cholesterol 71 mg/dL; LDL Cholesterol Calculated 186 mg/dl; Potassium 4.4 mmol/L (3.3-5.1); Sodium 141 mmol/L (135-145); Total Protein 6.7 g/dL (6.5-8.0); Triglycerides 77 mg/dL
[2022-07-18 12:47] LABS: Folate 9.4 ng/mL (> or = 4.0); Free T4 (Free Thyroxine) 0.73 ng/dL (0.71-1.85); Thyroid Stimulating Hormone 1.58 uIU/mL (0.32-4.0); Vitamin B12 255 pg/mL (200-900); Vitamin D 25-OH Total 26.2 ng/mL (>30)
== END 2022-07-18 09:10 | disposition home or self-care (01) ==
LOC: HO.HMGCLDS 09:09
PROVIDERS: PCP Internal Medicine; Visit Provider Internal Medicine
DX: E78.00 Pure hypercholesterolemia, unspecified (principal)
CPT/HCPCS: 36415; 80053; 80061; 82306; 82607; 82746; 83036; 84439; 84443; 85025

== ENCOUNTER 2022-11-08 12:47 | Outpatient (REF) | payer OTHER, SELFPAY ==
--- NOTE | ~2022-11-08 | MM_ITS ---
EXAMINATION: MM SCREENING DIGITAL BREAST TOMOSYNTHESIS, BILATERAL CLINICAL INFORMATION: Screening. Asymptomatic. The lifetime risk of breast cancer based on the Tyrer-Cuzick Model is 7.2%. COMPARISON: Mammography: This study is compared with prior exams dating back to 2018. TECHNIQUE: Digital breast tomosynthesis is performed in both the craniocaudal and mediolateral oblique views along with computer-aided detection (CAD). Synthesized 2D images are generated from the tomosynthesis. FINDINGS: There are scattered areas of fibroglandular density (ACR BI-RADS breast composition Category b). In the deep third of the superior aspect of the left breast, in the MLO projection, there is an asymmetry for which additional mammographic imaging is advised. In the right breast, there are no significant masses, abnormal calcifications, or other abnormalities. MM/MM tomosynthesis screening BI IMPRESSION: Asymmetry of the left breast warrants additional mammographic imaging. ASSESSMENT: BI-RADS BI-RADS 0 - Incomplete: Needs additional Imaging. RECOMMENDATION: 1. Additional views of the left breast. 2. Targeted ultrasound if warranted after review of the additional views. 3. Radiology department staff will contact the patient for additional imaging. Additional Imaging required This examination should not preclude the clinical evaluation of a suspicious palpable abnormality. This patient's information was entered into a reminder system with a target due date for their next mammogram.
== END 2022-11-08 12:48 | disposition home or self-care (01) ==
LOC: HO.MAMMO 12:47
PROVIDERS: PCP Internal Medicine; Visit Provider Internal Medicine
DX: Z12.31 Encounter for screening mammogram for malignant neoplasm of breast (principal)
CPT/HCPCS: 77063; 77067

== ENCOUNTER → 2022-11-08 13:00 | Outpatient (BNV) | payer OTHER, SELFPAY | PROVIDERS: PCP Internal Medicine; Visit Provider Radiology Diagnostic Radiology | DX: Z12.31 Encounter for screening mammogram for malignant neoplasm of breast (principal) | CPT/HCPCS: 77063; 77067 ==

== ENCOUNTER 2022-12-18 14:19 | Outpatient (REF) | payer OTHER, SELFPAY ==
--- NOTE | ~2022-12-18 | MM_ITS ---
EXAMINATION: MM DIAGNOSTIC DIGITAL BREAST TOMOSYNTHESIS, LEFT CLINICAL INFORMATION: Follow-up one view asymmetry left breast MLO projection posterior aspect. COMPARISON: Mammography: 11/08/2022, 10/24/2021, 07/09/2020. Dating back to 2013. TECHNIQUE: Digital breast tomosynthesis is performed. 2D images are generated from the tomosynthesis. The following views are obtained: Full-field digital 3-D left CC rolled lateral and rolled medial views, full-field 3-D left mediolateral view, and 3-D left MLO spot view. FINDINGS: There are scattered areas of fibroglandular density (ACR BI-RADS breast composition Category b). Additional views show no persistent significant mass, architectural abnormality, or abnormal calcifications. The parenchymal pattern is unchanged from numerous prior studies. Results were provided to the patient at time of visit by the technologist. MM/MM tomosynthesis added views L IMPRESSION: No findings suspicious for malignancy. Recommend the patient resume annual routine screening mammography. ASSESSMENT: BI-RADS BI-RADS 1 - Negative RECOMMENDATION: 1 year F/U This patient's information was entered into a reminder system with a target due date for their next mammogram.
== END 2022-12-18 14:20 | disposition home or self-care (01) ==
LOC: HO.MAMMO 14:19
PROVIDERS: PCP Internal Medicine; Visit Provider Internal Medicine
DX: N64.89 Other specified disorders of breast (principal)
CPT/HCPCS: 77061; 77065

== ENCOUNTER → 2022-12-18 14:30 | Outpatient (BNV) | payer OTHER, SELFPAY | PROVIDERS: PCP Internal Medicine; Visit Provider Radiology Diagnostic Radiology | DX: R92.8 Other abnormal and inconclusive findings on diagnostic imaging of breast (principal) | CPT/HCPCS: 77061; 77065 ==

== ENCOUNTER 2023-01-09 13:42 | Outpatient (AMB) | payer OTHER, SELFPAY ==
--- NOTE | 2023-01-09 13:47 | MHC.OFFVIS ---
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 Scribed for YANDY Felix by Carmen Cuba medical management specialist, on 01/09/2023 at 2:04 pm EST. 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 Patient admits she tries to eat a healthy diet including Calcium and Vitamin D. She stays active with exercise. Currently not sexually active. Denies vaginal itching and irritation. Denies family hx of breast, colon and ovarian cancer. Last pap smear 09/30/20. Last mammogram 11/08/22. UTD on colonoscopy. PFSH Medical History COVID-19 virus infection Laceration of face Annual physical exam Encounter for annual routine gynecological examination Scabies Malignant melanoma Pernicious anemia Hypercholesterolemia Anxiety and depression Vitamin D deficiency Leukopenia Carpal tunnel syndrome Herpes genitalis TMJ (dislocation of temporomandibular joint) Surgical History H/O colonoscopy History of removal of skin mole History of endometrial ablation History of tubal ligation History of section Family History Father Lung cancer Asbestos exposure Mother Myocardial infarction Heart disease Maternal Uncle Skin cancer Paternal Aunt Hx of blood clots Paternal Uncle Hx of blood clots Social History Housing: House Are you a primary ocular care aide to a significant other at home: No Do you presently have visiting nurse or other home services: No Alcohol intake: current Alcohol intake frequency: 0-2 drinks per day Patient Tobacco Use Status: Former Tobacco user Years Smoked: quit 25 years old e-Cigarette/Vaping Use: Never Used Second Hand Smoke Exposure: No service: No Current occupational status: employed Sexual orientation: Straight/Heterosexual Gender identity: Female Cognitive needs: No Hearing needs: No Vision needs: Yes Female Reproductive History Menstrual control method: permanent sterilization Permanent Sterilization: BTL Menopause type: natural Total pregnancies: 3 Full term: 3 Number of Living Children: 3 Date of last pap smear: 09/30/20 (neg pap and hpv) Date of Mammogram: 11/08/22 (Birad 0) Physical Exam Vital Signs: Last Vital Signs BP 126/68 01/09/23 13:49 BMI result Body Mass Index 27.8 Const General: cooperative, healthy appearing, no acute distress, well developed and alert Orientation/consciousness: patient oriented x3 HEENT Head: Yes normal to inspection Eyes General: appearance normal, both eyes and all related structures Neck Neck: Yes normal visual inspection Thyroid: Thyroid normal Chest Chest palpation & inspection: normal inspection of the chest Breast/axilla inspection: normal inspection of the breasts (no puckering, dimpling, peau de orange, retraction, discharge, masses) Breast/axilla palpation: normal palpation of the breasts Resp Effort & Inspection: normal respiratory effort GI Inspection: Yes normal to inspection Palpation (GI): Soft to palpation (to palpation) Rectal Exam - Female: deferred General: Yes bladder normal to inspection External Female Exam: normal external appearance and normal appearance of the urethra Speculum Exam - Vagina: normal appearance of the vagina, normal palpation and vagina atrophic Speculum Exam - Cervix: normal appearance of the cervix and normal palpation Bimanual exam- vagina & uterus: normal palpation and normal palpation Bimanual Exam- Adnexa, other: normal adnexae and no masses Skin General skin exam: no rashes or lesions noted Neuro General: patient oriented x3 Cognition (Neuro): normal cognition Extrem General: Yes normal to inspection Psych Attitude: cooperative Thought process: Normal thought process present Assessment & Plan Assessment & Plan (1) Encounter for well woman exam: Code(s): Z01.419 - Encounter for gynecological examination (general) (routine) without abnormal findings Plan: Discussed: Current recommendations for pap smears per ASCCP guidelines. Breast awareness and periodic self breast exams. Encouraged yearly mammograms. Maintaining a healthy lifestyle including a well balanced diet including Calcium and Vitamin D and routine exercise. Encouraged to use condoms for STD prevention. Encouraged patient to sign up for patient portal. Contact office with any PMB. All of her questions and concerns were addressed to the best of my ability. RTO in 1 year for AG. Coding Level of Care Code Est Pt Prev Care 40-64y(50790) Diagnoses Encounter for well woman exam Z01.419
[2023-01-09 13:49] VITALS: BP 126/68; BMI 27.8
== END 2023-01-09 14:18 | disposition home or self-care (01) ==
PROVIDERS: PCP Internal Medicine; Visit Provider Advanced Practice Midwife
DX: Z01.419 Encounter for gynecological examination (general) (routine) without abnormal findings (principal)
CPT/HCPCS: 99396

== ENCOUNTER → 2023-01-09 13:42 | Outpatient (BNVA) | payer SELFPAY | PROVIDERS: PCP Internal Medicine; Visit Provider Advanced Practice Midwife ==

== ENCOUNTER 2023-01-31 11:24 | Outpatient (AMB) | payer OTHER, SELFPAY ==
--- NOTE | 2023-01-31 11:33 | MHC.PC.OV ---
Vital Signs 01/31/23 11:34 Height 5 ft 3 in Weight 155 lb 6 oz BMI 27.5 BP 120/70 Blood Pressure Location Lt brachial Position Sitting Pulse 71 Pulse Source Pulse Oximeter Pulse Oximetry (%) 98 Oxygen Delivery Method Room Air Intake Visit Reasons: PE Intake Note: Patient is here today for a physical. 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 Accompanied by: Self / Same As Patient Allergies bupropion Adverse Reaction (Intermediate, Verified 01/31/23 11:34) palpitations Medication List - Last Reconciled 01/31/23 by Ward Perdue MD amitriptyline 10 mg PO BEDTIME hydrochlorothiazide 25 mg PO QAM 90 days Tobacco use date assessed: 01/31/23 Dental Screening Dental Screen Date: 01/31/23 Did you have a dental visit in the last 12 months?: Yes Did you have a dental problem in the last 6 months where you did not have access to dental care?: No Was dental information given to patient?: Patient has dentist HPI PE HPI Details 57-year-old overweight female with hypertension, hypercholesterolemia, generalized anxiety disorder and pernicious anemia last seen in June 2022. Patient is here for physical exam. Colonoscopy up-to-date December 2021 mammogram up-to-date. Patient was seen by the nurse practitioner in October 2022 for the blood pressure. 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 [facility] Medical History (Updated 01/31/23 @ 12:16 by Ward Perdue MD) Annual physical exam COVID-19 virus infection Laceration of face Encounter for annual routine gynecological examination Scabies Malignant melanoma Pernicious anemia Hypercholesterolemia Anxiety and depression Vitamin D deficiency Leukopenia Carpal tunnel syndrome Herpes genitalis TMJ (dislocation of temporomandibular joint) Surgical History H/O colonoscopy History of removal of skin mole History of endometrial ablation History of tubal ligation History of section Family History (Updated 01/31/23 @ 11:33 by RYANN Calhoun) Father Lung cancer Asbestos exposure Mother Myocardial infarction Heart disease Maternal Uncle Skin cancer Paternal Aunt Hx of blood clots Paternal Uncle Hx of blood clots Social History (Updated 01/31/23 @ 12:03 by Ward Perdue MD) Housing: House Are you a primary critical care physician to a significant other at home: No Do you presently have visiting nurse or other home services: No Alcohol intake: current Alcohol intake frequency: 0-2 drinks per day Patient Tobacco Use Status: Former Tobacco user Years Smoked: quit 25 years old e-Cigarette/Vaping Use: Never Used Second Hand Smoke Exposure: No service: No Current occupational status: employed Sexual orientation: Straight/Heterosexual Gender identity: Female Cognitive needs: No Hearing needs: No Vision needs: Yes Questionnaire Thrive Questionnaire Date Thrive assessed: 07/03/22 DONNA-7 AMB Questionnaire DONNA-7 Date DONNA - 7 assessed: 07/03/22 Source: Developed by Drs. Derek Rodriguez, Kellen Narvaez, Bro Groves and colleagues, with an educational marleen from [employer] Review of Systems Const Denies poor appetite and Denies weakness Eyes Denies no additional complaints ENT Reports Normal hearing present, Denies dizziness, Denies nasal congestion, Denies tinnitus and Denies sore throat Card Denies chest pain, Denies syncope, Denies rapid heart rate and Denies dyspnea Resp Denies cough and Denies dyspnea GI Denies change in stool character, Reports constipation, Denies diarrhea, Denies nausea and Denies vomiting Denies urinary frequency, Denies difficulty voiding and Denies dysuria Neuro Reports Normal hearing present, Denies confusion, Denies dizziness, Denies syncope and Denies weakness Psych Denies confusion Physical exam (Primary Care) Vital Signs: Last Vital Signs Pulse 71 01/31/23 11:34 BP 120/70 01/31/23 11:34 Pulse Ox 98 01/31/23 11:34 Oxygen Delivery Method Room Air 01/31/23 11:34 BMI result Body Mass Index 27.5 Tobacco/Smoking Status: Tobacco use Status Tobacco use date assessed 01/31/23 01/31/23 11:35 Patient Tobacco Use Status Former Tobacco user 01/31/23 11:35 e-Cigarette/Vaping Use Never Used 01/31/23 11:35 Thrive Assessment: Date of Thrive Assessment Date Thrive assessed 07/03/22 01/31/23 11:35 Const General: No confusion Orientation/consciousness: No confusion HENMT Head: Yes normocephalic Ears: external ears normal and TM's normal bilaterally Face and sinus: Yes normal facial exam Mouth: moist mucous membranes Throat: Yes tonsils normal Eyes Conjunctivae: conjunctivae normal Pupils: Equal, round and reactive pupils present and Pupil accommodation reflex normal Direct Ophthalmoscopy: normal light reflex Neck Neck: No lymphadenopathy Thyroid: Thyroid normal Chest Chest palpation & inspection: normal inspection of the chest Resp Effort & Inspection: normal respiratory effort and no audible wheezes Auscultation: clear to auscultation bilaterally, no crackles, no wheezes and lung sounds not diminished Cardio Rate: regular rate Rhythm: regular rhythm Peripheral pulses: radial pulses present and dorsalis pedis present GI Palpation (GI): no masses Auscultation: normal bowel sounds and normoactive bowel sounds Rectal Exam - Female: deferred Skin General skin exam: no rashes or lesions noted Rashes: no rashes Neuro General: No confusion Cranial nerves: Yes Equal, round and reactive pupils present and Yes Normal hearing present Cognition (Neuro): normal cognition Gait exam (Neuro): Normal gait present Motor exam (neuro): 5/5 motor strength present throughout Deep tendon reflexes (DTR's): Right brachioradialis reflex intensity grade: 2+, Left brachioradialis reflex intensity grade: 2+, Right patellar reflex intensity grade: 2+ and Left patellar reflex intensity grade: 2+ Extrem General: No edema Office Procedures Flu Questionnaire Does the patient have a severe egg allergy?: No Does the patient have severe life threatening allergies?: No Does the patient have a fever or illness today?: No Has the patient ever had Guillain-Greenfield Syndrome?: No Has the patient ever had any past reaction to a flu shot?: No Immunizations flu vacc [id number] 6mos up(PF) 60 mcg(15 mcgx4)/0.5 mL IM syringe Performing Provider: Ward Perdue MD [facility] Documented (not given) by: RYANN Calhoun on 01/31/23 11:37 Reason Not Given: Patient Refused Assessment and Plan Assessment & Plan (1) Annual physical exam: Code(s): Z00.00 - Encounter for general adult medical examination without abnormal findings (2) Overweight (BMI 25.0-29.9): Code(s): E66.3 - Overweight Plan: Diet and exercise (3) Hypercholesterolemia: Code(s): E78.00 - Pure hypercholesterolemia, unspecified Plan: Avoid fried foods, chicken skin, eggs, butter margarine, pastries and meat. Be it pork or beef they have a lot of cholesterol LDL goal of less than 130 and triglyceride of less than 150 (4) Hypertension: Code(s): I10 - Essential (primary) hypertension Plan: Continue with blood pressure medication. 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 Code(s): D51.0 - Vitamin B12 deficiency anemia due to intrinsic factor deficiency (6) Generalized anxiety disorder: Comment: Declined referral for counseling Code(s): F41.1 - Generalized anxiety disorder Plan: Continue with amitriptyline (7) Ringing in ears: Code(s): H93.19 - Tinnitus, unspecified ear (8) Bilateral carpal tunnel syndrome: Comment: 2015 Code(s): G56.03 - Carpal tunnel syndrome, bilateral upper limbs Orders: Orders Influenza [id number] Immunization Today Z23 - Encounter for immunization Complete Blood Count Auto Diff Today E78.00 - Pure hypercholesterolemia, unspecified Thyroid Stimulating Hormone Today E78.00 - Pure hypercholesterolemia, unspecified Lipid Panel Today E78.00 - Pure hypercholesterolemia, unspecified Free T4 (Free Thyroxine) Today E78.00 - Pure hypercholesterolemia, unspecified Comprehensive Met. Panel Today E78.00 - Pure hypercholesterolemia, unspecified Vitamin B12 and Folate Today E78.00 - Pure hypercholesterolemia, unspecified Vitamin D 25-OH Total Today E78.00 - Pure hypercholesterolemia, unspecified Referrals Speech and Hearing Referral H93.19 - Tinnitus, unspecified ear Coding Level of Care Code Est Pt Prev Care 40-64y(74547) Diagnoses Annual physical exam Z00.00 Overweight (BMI 25.0-29.9) E66.3 Hypercholesterolemia E78.00 Hypertension I10 Pernicious anemia D51.0 Generalized anxiety disorder F41.1 Ringing in ears H93.19 Bilateral carpal tunnel syndrome G56.03
[2023-01-31 11:34] VITALS: BP 120/70; PULSE 71; O2SAT 98; BMI 27.5
== END 2023-01-31 12:21 | disposition home or self-care (01) ==
PROVIDERS: PCP Internal Medicine; Visit Provider Internal Medicine
DX: Z00.00 Encounter for general adult medical examination without abnormal findings (principal); E66.3 Overweight; E78.00 Pure hypercholesterolemia, unspecified; I10 Essential (primary) hypertension; D51.0 Vitamin B12 deficiency anemia due to intrinsic factor deficiency; F41.1 Generalized anxiety disorder; H93.13 Tinnitus, bilateral; G56.03 Carpal tunnel syndrome, bilateral upper limbs
CPT/HCPCS: 99396

== ENCOUNTER 2023-02-21 09:02 | Outpatient (REF) | payer OTHER, SELFPAY ==
[2023-02-21 11:43] LABS: MANUAL DIFF FLAG NO
[2023-02-21 12:04] LABS: Basophils Percent Auto 0.3 % (0-2); Eosinophils Absolute Auto 0.1 X10*3/uL (0.0-0.4); Eosinophils Percent Auto 2.1 % (0-4); Hematocrit 39.6 % (37.0-47.0); Hemoglobin 12.6 g/dl (12.0-16.0); Lymphocytes Absolute Auto 1.1 X10*3/uL (1.2-4.9); Lymphocytes Percent Auto 27.1 % (20-40); Mean Corpuscular HGB Conc 31.8 g/dl (31.0-35.0); Mean Corpuscular Hemoglobin 29.9 pg (27.0-33.0); Mean Corpuscular Volume 94.1 fL (80.0-98.0); Mean Platelet Volume 9.2 fL (9.4-12.3); Monocytes Absolute Auto 0.4 X10*3/uL (0.1-1.2); Monocytes Percent Auto 11.4 % (2-11); Neutrophils Absolute Auto 2.3 x10*3/uL (2.0-8.3); Neutrophils Percent Auto 59.1 % (45-73); Platelet Count 333 X10*3/uL (160-400); Red Blood Count 4.21 X10*6/uL (4.20-5.50); Red Cell Distribution Width 11.9 % (11.0-16.0); White Blood Count 3.9 X10*3/uL (4.8-10.8)
[2023-02-21 12:45] LABS: Alanine Aminotransferase 33 U/L (0-31); Albumin Level 4.3 g/dL (3.5-5.0); Alkaline Phosphatase 85 U/L (39-117); Anion Gap 10 (12-20); Aspartate Amino Transferase 26 U/L (5-31); Bilirubin Total 0.5 mg/dL (0.0-1.0); Blood Urea Nitrogen 16 mg/dL (9-16); Calcium 9.8 mg/dL (8.4-10.2); Carbon Dioxide 28 mmol/L (22-29); Chloride 104 mmol/L (96-108); Cholesterol 228 mg/dL (<200); Estimated Glomerular Filt Rate > 60; Glucose Random 87 mg/dL (60-115); HDL Cholesterol 65 mg/dL (>40); LDL Cholesterol Calculated 139 mg/dL (<100); Potassium 4.1 mmol/L (3.3-5.1); Sodium 138 mmol/L (135-145); Total Protein 7.3 g/dL (6.5-8.0); Triglycerides 121 mg/dL (<150)
[2023-02-21 12:47] LABS: Free T4 (Free Thyroxine) 0.73 ng/dL (0.71-1.85); Thyroid Stimulating Hormone 1.64 uIU/mL (0.32-4.0); Vitamin D 25-OH Total 39.8 ng/mL (>30)
[2023-02-21 13:12] LABS: Folate 11.8 ng/mL (> or = 4.0); Vitamin B12 388 pg/mL (200-900)
== END 2023-02-21 09:03 | disposition home or self-care (01) ==
LOC: HO.HMGCLDS 09:02
PROVIDERS: PCP Internal Medicine; Visit Provider Internal Medicine
DX: E78.00 Pure hypercholesterolemia, unspecified (principal)
CPT/HCPCS: 36415; 80053; 80061; 82306; 82607; 82746; 84439; 84443; 85025

== ENCOUNTER 2023-04-11 10:21 | Outpatient (REF) | payer OTHER, SELFPAY | END 2023-04-11 10:22 | disposition home or self-care (01) | LOC: HO.SH 10:21 | PROVIDERS: Visit Provider Nurse Practitioner Family | DX: Z01.118 Encounter for examination of ears and hearing with other abnormal findings (principal); H93.293 Other abnormal auditory perceptions, bilateral; H93.13 Tinnitus, bilateral | CPT/HCPCS: 92557 ==

== ENCOUNTER 2023-08-29 12:15 | Outpatient (AMB) | payer OTHER, SELFPAY ==
--- NOTE | 2023-08-29 12:38 | MHC.PC.OV ---
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 by: Self / Same As Patient Allergies bupropion Adverse Reaction (Intermediate, Verified 08/29/23 12:39) palpitations Medication List - Last Reconciled 08/29/23 by Ward Perdue MD amitriptyline 10 mg PO BEDTIME hydrochlorothiazide 25 mg PO QAM 90 days Tobacco use date assessed: 08/29/23 Dental Screening Dental Screen Date: 08/29/23 Did you have a dental visit in the last 12 months?: Yes Did you have a dental problem in the last 6 months where you did not have access to dental care?: No Was dental information given to patient?: Patient has dentist HPI 3month f/u HPI Details 57-year-old overweight female with hypertension hypercholesterolemia pernicious anemia generalized anxiety disorder last seen in January 2023. Patient is here for physical exam. Colonoscopy last done in December 2021 3 years mammograms up-to-date October 2022. [facility] Medical History (System 02/19/23 @ 15:36 by Radha Tarango) Annual physical exam COVID-19 virus infection Laceration of face Encounter for annual routine gynecological examination Scabies Malignant melanoma Pernicious anemia Hypercholesterolemia Anxiety and depression Vitamin D deficiency Leukopenia Carpal tunnel syndrome Herpes genitalis TMJ (dislocation of temporomandibular joint) Surgical History H/O colonoscopy History of removal of skin mole History of endometrial ablation History of tubal ligation History of section Family History Father Lung cancer Asbestos exposure Mother Myocardial infarction Heart disease Maternal Uncle Skin cancer Paternal Aunt Hx of blood clots Paternal Uncle Hx of blood clots Social History Housing: House Are you a primary chronic care nurse to a significant other at home: No Do you presently have visiting nurse or other home services: No Alcohol intake: current Alcohol intake frequency: 0-2 drinks per day Patient Tobacco Use Status: Former Tobacco user Years Smoked: quit 25 years old e-Cigarette/Vaping Use: Never Used Second Hand Smoke Exposure: No service: No Current occupational status: employed Current occupational exposures/hazards: No Sexual orientation: Straight/Heterosexual Gender identity: Female Cognitive needs: No Hearing needs: No Vision needs: Yes Questionnaire PHQ-9 Over the last 2 weeks, how often have you been bothered by any of the following problems? 1. Little interest or pleasure in doing things: not at all 2. Feeling down, depressed, or hopeless: not at all 3. Trouble falling or staying asleep, or sleeping too much: not at all 4. Feeling tired or having little energy: not at all 5. Poor appetite or overeating: not at all 6. Feeling bad about yourself - or that you are a failure or have let yourself or your family down: not at all 7. Trouble concentrating on things, such as reading the newspaper or watching television: not at all 8. Moving or speaking so slowly that other people could have noticed. Or the opposite - being so fidgety or restless that you have been moving around a lot more than usual: not at all 9. Thoughts that you would be better off or of hurting yourself in some way: not at all Total score: 0 Source: Developed by Drs. Derek Rodriguez, Kellen Narvaez, Bro Groves and colleagues, with an educational marleen from [employer]. Thrive Questionnaire Date Thrive assessed: 08/29/23 I am a: Patient What is your living situation today?: I have a steady place to live Within the past 12 months, did the food you bought not last and you didn't have the money to get more?: Never true Within the past 12 months, did you worry whether your food would run out before you got money to buy more?: Never true Do you have trouble paying for medicines?: No Do you have trouble getting transportation to medical appointments?: No Do you have trouble paying your heating and electricity bill?: No Do you have trouble taking care of your child, family member or friend?: No Do you have trouble with day-to-day activities such as bathing, preparing meals, shopping, managing finances, etc.?: No Are you currently unemployed and looking for a job?: No Are you interested in more education?: No Please select the resources that you would like help with: None Currently or been in a relationship where the following occur: no concerns reported THRIVE Score: 0 AUDIT C Alcohol Use Questionnaire (AUDIT-C) 1. How often do you have a drink containing alcohol?: 2-3 times a week 2. How many drinks containing alcohol do you have on a typical day when you are drinking?: 1 or 2 3. How often do you have six or more drinks on one occasion?: Never Total Score: 3 DONNA-7 AMB Questionnaire DONNA-7 Date DONNA - 7 assessed: 08/29/23 Feeling nervous, anxious, or on edge: 0 = Not at all Not being able to stop or control worryin = Not at all Worrying too much about different things: 0 = Not at all Trouble relaxin = Not at all Being so restless that it is hard to sit still: 0 = Not at all Becoming easily annoyed or irritable: 0 = Not at all Feeling afraid as if something awful might happen: 0 = Not at all Total DONNA-7 score (0-4 normal; 5-9 mild; 10-14 moderate; 15-21 severe): 0 Source: Developed by Drs. Derek Rodriguez, Kellen Narvaez, Bro Groves and colleagues, with an educational marleen from [employer]. Physical exam (Primary Care) Vital Signs: Last Vital Signs BP 136/80 08/29/23 12:39 BMI result Body Mass Index 26.6 Tobacco/Smoking Status: Tobacco use Status Tobacco use date assessed 08/29/23 08/29/23 12:42 Patient Tobacco Use Status Former Tobacco user 08/29/23 12:42 e-Cigarette/Vaping Use Never Used 08/29/23 12:42 PHQ-9: PHQ-9 Score PHQ-9: Total score 0 08/29/23 12:47 Thrive Assessment: Date of Thrive Assessment Date Thrive assessed 08/29/23 08/29/23 12:42 Currently or been in a relationship where the following occur: no concerns reported Const General: alert; No acute distress Eyes Conjunctivae: conjunctivae normal Resp Auscultation: clear to auscultation bilaterally Cardio Rate: regular rate Rhythm: regular rhythm GI Inspection: Yes normal to inspection Extrem General: Yes normal to inspection and No edema Assessment and Plan Assessment & Plan (1) Overweight (BMI 25.0-29.9): Code(s): E66.3 - Overweight Plan: Diet and exercise (2) Hypertension: Code(s): I10 - Essential (primary) hypertension Plan: Continue with blood pressure medication. Decrease salt intake and exercise (3) Generalized anxiety disorder: Comment: Declined referral for counseling Code(s): F41.1 - Generalized anxiety disorder Plan: Continue with present medication Orders: Orders Complete Blood Count Auto Diff Today E78.00 - Pure hypercholesterolemia, unspecified Free T4 (Free Thyroxine) Today E78.00 - Pure hypercholesterolemia, unspecified Thyroid Stimulating Hormone Today E78.00 - Pure hypercholesterolemia, unspecified Comprehensive Met. Panel Today E78.00 - Pure hypercholesterolemia, unspecified Lipid Panel Today E78.00 - Pure hypercholesterolemia, unspecified Vitamin B12 and Folate Today E78.00 - Pure hypercholesterolemia, unspecified Vitamin D 25-OH Total Today E78.00 - Pure hypercholesterolemia, unspecified Coding Level of Care Code Est Pt Level 4 (26874) Diagnoses Overweight (BMI 25.0-29.9) E66.3 Hypertension I10 Generalized anxiety disorder F41.1
[2023-08-29 12:39] VITALS: BP 136/80; BMI 26.6
== END 2023-08-29 13:52 | disposition home or self-care (01) ==
PROVIDERS: PCP Internal Medicine; Visit Provider Internal Medicine
DX: I10 Essential (primary) hypertension (principal); E66.3 Overweight; F41.1 Generalized anxiety disorder
CPT/HCPCS: 99214

== ENCOUNTER 2023-09-05 08:34 | Outpatient (REF) | payer OTHER, SELFPAY ==
[2023-09-05 10:27] LABS: MANUAL DIFF FLAG NO
[2023-09-05 10:44] LABS: Basophils Percent Auto 0.4 % (0-2); Eosinophils Percent Auto 1.1 % (0-4); Hematocrit 40.1 % (37.0-47.0); Hemoglobin 12.9 g/dl (12.0-16.0); Imm Gran Abs Auto 0.01 X10*3/uL (0.00-0.03); Imm Gran Pct Auto 0.4 % (0.0-0.4); Lymphocytes Absolute Auto 1.1 X10*3/uL (1.2-4.9); Lymphocytes Percent Auto 41.6 % (20-40); Mean Corpuscular HGB Conc 32.2 g/dl (31.0-35.0); Mean Corpuscular Hemoglobin 30.4 pg (27.0-33.0); Mean Corpuscular Volume 94.6 fL (80.0-98.0); Mean Platelet Volume 9.5 fL (9.4-12.3); Monocytes Absolute Auto 0.3 X10*3/uL (0.1-1.2); Monocytes Percent Auto 11.5 % (2-11); Neutrophils Absolute Auto 1.2 x10*3/uL (2.0-8.3); Platelet Count 327 X10*3/uL (160-400); Red Blood Count 4.24 X10*6/uL (4.20-5.50); Red Cell Distribution Width 11.9 % (11.0-16.0); White Blood Count 2.7 X10*3/uL (4.8-10.8)
[2023-09-05 11:17] LABS: Alanine Aminotransferase 20 U/L (0-31); Albumin Level 4.3 g/dL (3.5-5.0); Alkaline Phosphatase 79 U/L (39-117); Anion Gap 14 (12-20); Aspartate Amino Transferase 20 U/L (5-31); Bilirubin Total 0.6 mg/dL (0.0-1.0); Blood Urea Nitrogen 11 mg/dL (9-16); Calcium 10.1 mg/dL (8.4-10.2); Carbon Dioxide 27 mmol/L (22-29); Chloride 103 mmol/L (96-108); Cholesterol 230 mg/dL (<200); Estimated Glomerular Filt Rate > 60; Free T4 (Free Thyroxine) 0.78 ng/dL (0.71-1.85); Glucose Random 93 mg/dL (60-115); HDL Cholesterol 65 mg/dL (>40); LDL Cholesterol Calculated 153 mg/dL (<100); Potassium 4.1 mmol/L (3.3-5.1); Sodium 140 mmol/L (135-145); Thyroid Stimulating Hormone 1.41 uIU/mL (0.32-4.0); Total Protein 7.3 g/dL (6.5-8.0); Triglycerides 62 mg/dL (<150); Vitamin D 25-OH Total 37.7 ng/mL (>30)
[2023-09-05 11:20] LABS: Folate 13.4 ng/mL (> or = 4.0); Vitamin B12 341 pg/mL (200-900)
== END 2023-09-05 08:35 | disposition home or self-care (01) ==
LOC: HO.HMGCLDS 08:34
PROVIDERS: PCP Internal Medicine; Visit Provider Internal Medicine
DX: E78.00 Pure hypercholesterolemia, unspecified (principal)
CPT/HCPCS: 36415; 80053; 80061; 82306; 82607; 82746; 84439; 84443; 85025

== ENCOUNTER 2023-11-14 13:05 | Outpatient (REF) | payer OTHER, SELFPAY ==
--- NOTE | ~2023-11-14 | MM_ITS ---
EXAMINATION: MM SCREENING DIGITAL BREAST TOMOSYNTHESIS, BILATERAL CLINICAL INFORMATION: Screening. Asymptomatic. COMPARISON: Mammography: This study is compared with prior exams dating back to 2020. TECHNIQUE: Digital breast tomosynthesis is performed in both the craniocaudal and mediolateral oblique views along with computer-aided detection (CAD). Synthesized 2D images are generated from the tomosynthesis. FINDINGS: The breasts are heterogeneously dense, which may obscure small masses (ACR BI-RADS breast composition Category c). There are no significant masses, abnormal calcifications, or other abnormalities. MM/MM tomosynthesis screening BI IMPRESSION: No mammographic evidence of malignancy. ASSESSMENT: BI-RADS BI-RADS 1 - Negative RECOMMENDATION: Routine annual mammography screening. 1 year F/U This examination should not preclude the clinical evaluation of a suspicious palpable abnormality. This patient's information was entered into a reminder system with a target due date for their next mammogram.
== END 2023-11-14 13:06 | disposition home or self-care (01) ==
LOC: HO.MAMMO 13:05
PROVIDERS: PCP Internal Medicine; Visit Provider Internal Medicine
DX: Z12.31 Encounter for screening mammogram for malignant neoplasm of breast (principal)
CPT/HCPCS: 77063; 77067

== ENCOUNTER → 2023-11-14 13:15 | Outpatient (BNV) | payer OTHER, SELFPAY | PROVIDERS: PCP Internal Medicine; Visit Provider Radiology Diagnostic Radiology | DX: Z12.31 Encounter for screening mammogram for malignant neoplasm of breast (principal) | CPT/HCPCS: 77063; 77067 ==

== ENCOUNTER 2024-01-15 12:59 | Outpatient (AMB) | payer OTHER, SELFPAY ==
--- NOTE | 2024-01-15 13:03 | A.OFFVIS_ITS ---
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 She is doing well with no concerns. Attempting to eat a low-fat healthy diet with vitamin D and stays active with exercise at work. Currently no sexually active. Denies any vaginal dryness or irritation. Last pap smear; 2020, negative. Last mammogram; 2023. Colonoscopy is UTD. Denies any family history of breast, ovarian or colon cancer. History of malignant melanoma-see's Dermatology regularly. [facility] Medical History Annual physical exam COVID-19 virus infection Laceration of face Encounter for annual routine gynecological examination Scabies Malignant melanoma Pernicious anemia Hypercholesterolemia Anxiety and depression Vitamin D deficiency Leukopenia Carpal tunnel syndrome Herpes genitalis TMJ (dislocation of temporomandibular joint) Surgical History H/O colonoscopy History of removal of skin mole History of endometrial ablation History of tubal ligation History of section Family History Father Lung cancer Asbestos exposure Mother Myocardial infarction Heart disease Maternal Uncle Skin cancer Paternal Aunt Hx of blood clots Paternal Uncle Hx of blood clots Social History Housing: House Are you a primary care transitions manager to a significant other at home: No Do you presently have visiting nurse or other home services: No Alcohol intake: current Alcohol intake frequency: 0-2 drinks per day Patient Tobacco Use Status: Former Tobacco user Years Smoked: quit 25 years old e-Cigarette/Vaping Use: Never Used Second Hand Smoke Exposure: No service: No Current occupational status: employed Current occupational exposures/hazards: No Sexual orientation: Straight/Heterosexual Gender identity: Female Cognitive needs: No Hearing needs: No Vision needs: Yes Female Reproductive History Menstrual control method: permanent sterilization Permanent Sterilization: BTL Total pregnancies: 3 Full term: 3 Number of Living Children: 3 Date of last pap smear: 09/30/20 (neg pap and hpv) Date of Mammogram: 11/14/23 ([facility] 1) Review of Systems Const All systems reviewed & are unremarkable except as noted in HPI and below Reports as per HPI Eyes Reports no additional complaints ENT Reports no additional complaints Card Reports no additional complaints Resp Reports no additional complaints GI Reports as per HPI and Reports no additional complaints Reports as per HPI Musc Reports no additional complaints Skin/Breast Reports as per HPI Neuro Reports no additional complaints Psych Reports no additional complaints Endo Reports no additional complaints Geovany/Lymph Reports no additional complaints Aller/Immun Reports no additional complaints Physical Exam Vital Signs: BMI result Body Mass Index 26.4 Const General: cooperative, healthy appearing, no acute distress, well developed and alert Orientation/consciousness: patient oriented x3 HEENT Head: Yes normal to inspection Eyes General: appearance normal, both eyes and all related structures Neck Neck: Yes normal visual inspection Thyroid: Thyroid normal Chest Chest palpation & inspection: normal inspection of the chest and other (no puckering, dimpling, peau de orange, retraction, discharge, masses) Breast/axilla inspection: normal inspection of the breasts Breast/axilla palpation: normal palpation of the breasts Resp Effort & Inspection: normal respiratory effort GI Inspection: Yes normal to inspection Palpation (GI): Soft to palpation Rectal Exam - Female: deferred and visual inspection normal (Declined further inspection of gluteal area skin surface) General: Yes bladder normal to palpation External Female Exam: normal external appearance and normal appearance of the urethra Speculum Exam - Vagina: normal appearance of the vagina, normal palpation, normal vaginal discharge and vagina atrophic Speculum Exam - Cervix: normal appearance of the cervix and normal palpation Bimanual exam- vagina & uterus: normal bimanual exam, normal palpation, uterine size normal, bladder normal to palpation, normal palpation and non-tender Bimanual Exam- Adnexa, other: no masses Skin General skin exam: no rashes or lesions noted Rashes: no rashes Neuro General: patient oriented x3 Cognition (Neuro): normal cognition Extrem General: Yes normal to inspection Psych Attitude: cooperative Thought process: Normal thought process present Assessment & Plan Assessment & Plan (1) Encounter for well woman exam with routine gynecological exam: Code(s): Z01.419 - Encounter for gynecological examination (general) (routine) without abnormal findings Category: Medical Plan Discussed: Current recommendations for pap smears per ASCCP guidelines. Breast awareness, periodic self breast exams and yearly mammogram. Maintain a healthy lifestyle, well balanced diet including Calcium 1,200 mg and Vitamin D 600 IU daily, and routine exercise. Calcium handout provided for alternative non dairy sources. Contact the office with any postmenopausal bleeding. Patient verbalizes understanding and agrees to the plan of care. She was given opportunity to ask questions and all questions were answered to the best of my ability. RTO in 1 year for annual operations representative exam. This note is constructed using voice recognition software. While every effort has been made to ensure accuracy, legal transcriber errors may have been included. Coding Level of Care Code Est Pt Prev Care 40-64y(10343) Diagnoses Encounter for well woman exam with routine gynecological exam Z01.419
[2024-01-15 13:04] VITALS: BP 106/60; BMI 26.4
== END 2024-01-15 13:29 | disposition home or self-care (01) ==
PROVIDERS: PCP Internal Medicine; Visit Provider Advanced Practice Midwife
DX: Z01.419 Encounter for gynecological examination (general) (routine) without abnormal findings (principal)
CPT/HCPCS: 99396

== ENCOUNTER → 2024-01-15 12:59 | Outpatient (BNVA) | payer OTHER, SELFPAY | PROVIDERS: PCP Internal Medicine; Visit Provider Advanced Practice Midwife | DX: Z01.419 Encounter for gynecological examination (general) (routine) without abnormal findings (principal) | CPT/HCPCS: 99396 ==

== ENCOUNTER 2024-02-06 12:20 | Outpatient (AMB) | payer OTHER, SELFPAY ==
--- NOTE | 2024-02-06 12:35 | MHC.PC.OV ---
Vital Signs 02/06/24 12:36 Height 5 ft 3 in Weight 149 lb 2 oz BMI 26.4 BP 130/76 Blood Pressure Location Lt brachial Position Sitting Pulse 61 Pulse Source Pulse Oximeter Pulse Oximetry (%) 94 Oxygen Delivery Method Room Air Intake Visit Reasons: Annual exam Intake Note: Patient is here today for a physical. Pt decline flu shot today. 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 Patient's colonoscopy is up-to-date December 2021 3 years, mammograms up-to-date Pap smear is up-to-date. couple of week nausea, PFSH Medical History Annual physical exam COVID-19 virus infection Laceration of face Encounter for annual routine gynecological examination Scabies Malignant melanoma Pernicious anemia Hypercholesterolemia Anxiety and depression Vitamin D deficiency Leukopenia Carpal tunnel syndrome Herpes genitalis TMJ (dislocation of temporomandibular joint) Surgical History H/O colonoscopy History of removal of skin mole History of endometrial ablation History of tubal ligation History of section Family History Father Lung cancer Asbestos exposure Mother Myocardial infarction Heart disease Maternal Uncle Skin cancer Paternal Aunt Hx of blood clots Paternal Uncle Hx of blood clots Social History Housing: House Are you a primary toddler caregiver to a significant other at home: No Do you presently have visiting nurse or other home services: No Alcohol intake: current Alcohol intake frequency: 0-2 drinks per day Patient Tobacco Use Status: Former Tobacco user Years Smoked: quit 25 years old e-Cigarette/Vaping Use: Never Used Second Hand Smoke Exposure: No service: No Current occupational status: employed Current occupational exposures/hazards: No Sexual orientation: Straight/Heterosexual Gender identity: Female Cognitive needs: No Hearing needs: No Vision needs: Yes Questionnaire PHQ-9 Over the last 2 weeks, how often have you been bothered by any of the following problems? 1. Little interest or pleasure in doing things: not at all 2. Feeling down, depressed, or hopeless: not at all 3. Trouble falling or staying asleep, or sleeping too much: not at all 4. Feeling tired or having little energy: not at all 5. Poor appetite or overeating: not at all 6. Feeling bad about yourself - or that you are a failure or have let yourself or your family down: not at all 7. Trouble concentrating on things, such as reading the newspaper or watching television: not at all 8. Moving or speaking so slowly that other people could have noticed. Or the opposite - being so fidgety or restless that you have been moving around a lot more than usual: not at all 9. Thoughts that you would be better off or of hurting yourself in some way: not at all Total score: 0 Depression Screening Interpretation: Negative Depression Screening Done: Yes Source: Developed by Drs. Derek Rodriguez, Kellen Narvaez, Bro Groves and colleagues, with an educational marleen from [employer]. Thrive Questionnaire Date Thrive assessed: 08/29/23 I am a: Patient What is your living situation today?: I have a steady place to live Within the past 12 months, did the food you bought not last and you didn't have the money to get more?: Never true Within the past 12 months, did you worry whether your food would run out before you got money to buy more?: Never true Do you have trouble paying for medicines?: No Do you have trouble getting transportation to medical appointments?: No Do you have trouble paying your heating and electricity bill?: No Do you have trouble taking care of your child, family member or friend?: No Do you have trouble with day-to-day activities such as bathing, preparing meals, shopping, managing finances, etc.?: No Are you currently unemployed and looking for a job?: No Are you interested in more education?: No Please select the resources that you would like help with: None Currently or been in a relationship where the following occur: No concerns reported THRIVE Score: 0 AUDIT C Alcohol Use Questionnaire (AUDIT-C) 1. How often do you have a drink containing alcohol?: 2-3 times a week 2. How many drinks containing alcohol do you have on a typical day when you are drinking?: 3 or 4 3. How often do you have six or more drinks on one occasion?: Never Total Score: 4 DONNA-7 AMB Questionnaire DONNA-7 Date DONNA - 7 assessed: 02/06/24 Feeling nervous, anxious, or on edge: 0 = Not at all Not being able to stop or control worryin = Not at all Worrying too much about different things: 0 = Not at all Trouble relaxin = Not at all Being so restless that it is hard to sit still: 0 = Not at all Becoming easily annoyed or irritable: 0 = Not at all Feeling afraid as if something awful might happen: 0 = Not at all Total DONNA-7 score (0-4 normal; 5-9 mild; 10-14 moderate; 15-21 severe): 0 Source: Developed by Drs. Derek Rodriguez, Kellen Narvaez, Bro Groves and colleagues, with an educational marleen from [employer]. Review of Systems Const Denies poor appetite and Denies weakness Eyes Denies no additional complaints ENT Reports Normal hearing present, Denies dizziness, Denies nasal congestion, Denies tinnitus and Denies sore throat Card Denies chest pain, Denies syncope, Denies rapid heart rate and Denies dyspnea Resp Denies cough and Denies dyspnea GI Denies change in stool character, Reports constipation, Denies diarrhea, Denies nausea and Denies vomiting Denies urinary frequency, Denies difficulty voiding and Denies dysuria Neuro Reports Normal hearing present, Denies confusion, Denies dizziness, Denies syncope and Denies weakness Psych Denies confusion Physical exam (Primary Care) Vital Signs: Last Vital Signs Pulse 61 02/06/24 12:36 BP 130/76 02/06/24 12:36 Pulse Ox 94 02/06/24 12:36 Oxygen Delivery Method Room Air 02/06/24 12:36 BMI result Body Mass Index 26.4 Tobacco/Smoking Status: Tobacco use Status Tobacco use date assessed 02/06/24 02/06/24 12:41 Patient Tobacco Use Status Former Tobacco user 02/06/24 12:41 e-Cigarette/Vaping Use Never Used 02/06/24 12:41 PHQ-9: PHQ-9 Score PHQ-9: Total score 0 02/06/24 12:41 Depression Screening Interpretation: Negative Thrive Assessment: Date of Thrive Assessment Date Thrive assessed 08/29/23 02/06/24 12:41 Currently or been in a relationship where the following occur: No concerns reported Const General: No confusion Orientation/consciousness: No confusion HENMT Head: Yes normocephalic Ears: external ears normal and TM's normal bilaterally Face and sinus: Yes normal facial exam Mouth: moist mucous membranes Throat: Yes tonsils normal Eyes Conjunctivae: conjunctivae normal Pupils: Equal, round and reactive pupils present and Pupil accommodation reflex normal Direct Ophthalmoscopy: normal light reflex Neck Neck: No lymphadenopathy Thyroid: Thyroid normal Chest Chest palpation & inspection: normal inspection of the chest Resp Effort & Inspection: normal respiratory effort and no audible wheezes Auscultation: clear to auscultation bilaterally, no crackles, no wheezes and lung sounds not diminished Cardio Rate: regular rate Rhythm: regular rhythm Peripheral pulses: radial pulses present and dorsalis pedis present GI Palpation (GI): no masses Auscultation: normal bowel sounds and normoactive bowel sounds Rectal Exam - Female: deferred Skin General skin exam: no rashes or lesions noted Rashes: no rashes Neuro General: No confusion Cranial nerves: Yes Equal, round and reactive pupils present and Yes Normal hearing present Cognition (Neuro): normal cognition Gait exam (Neuro): Normal gait present Motor exam (neuro): 5/5 motor strength present throughout Deep tendon reflexes (DTR's): Right brachioradialis reflex intensity grade: 2+, Left brachioradialis reflex intensity grade: 2+, Right patellar reflex intensity grade: 2+ and Left patellar reflex intensity grade: 2+ Extrem General: No edema Coding Level of Care Code Est Pt Prev Care 40-64y(06370) Diagnoses Tubular adenoma of colon D12.6 Hypertension I10 Hypercholesterolemia E78.00 Generalized anxiety disorder F41.1 Annual physical exam Z00.00 Assessment & Plan Assessment & Plan (1) Tubular adenoma of colon: Comment: 2017 scope 2 large, 2021 scope 1 greater than 1 Cm TA repeat 3 years Code(s): D12.6 - Benign neoplasm of colon, unspecified Category: Medical Plan: Patient is due for colonoscopy next year (2) Hypertension: Code(s): I10 - Essential (primary) hypertension Category: Medical Plan: Continue with hydrochlorothiazide. Blood pressure plan (3) Hypercholesterolemia: Code(s): E78.00 - Pure hypercholesterolemia, unspecified Category: Medical Plan: Avoid fried foods, chicken skin, eggs, butter margarine, pastries and meat. Be it pork or beef they have a lot of cholesterol LDL goal of less than 130 and triglyceride of less than 150 (4) Generalized anxiety disorder: Comment: Declined referral for counseling Code(s): F41.1 - Generalized anxiety disorder Category: Medical Plan: Continue with present medication (5) Annual physical exam: Code(s): Z00.00 - Encounter for general adult medical examination without abnormal findings Category: Medical Plan: Patient is advised to eat healthy, keep well hydrated, keep active and have adequate sleep. Medications: Refilled amitriptyline 10 mg PO BEDTIME 90 tabs 1RF hydrochlorothiazide 25 mg PO QAM 90 days 90 tabs 2RF I10 - Essential (primary) hypertension
[2024-02-06 12:36] VITALS: BP 130/76; PULSE 61; O2SAT 94; BMI 26.4
== END 2024-02-06 13:49 | disposition home or self-care (01) ==
PROVIDERS: PCP Internal Medicine; Visit Provider Internal Medicine
DX: D12.6 Benign neoplasm of colon, unspecified (principal); I10 Essential (primary) hypertension; E78.00 Pure hypercholesterolemia, unspecified; F41.1 Generalized anxiety disorder; Z00.00 Encounter for general adult medical examination without abnormal findings

== ENCOUNTER → 2024-02-06 12:20 | Outpatient (BNVA) | payer OTHER, SELFPAY | PROVIDERS: PCP Internal Medicine; Visit Provider Internal Medicine | DX: Z00.01 Encounter for general adult medical examination with abnormal findings (principal); D12.6 Benign neoplasm of colon, unspecified; E78.00 Pure hypercholesterolemia, unspecified; I10 Essential (primary) hypertension; F41.1 Generalized anxiety disorder | CPT/HCPCS: 96127; 99396 ==

== ENCOUNTER 2024-04-29 10:40 | Emergency (ER) | payer OTHER, SELFPAY ==
[2024-04-29 10:50] VITALS: BP 150/89; PULSE 100; RESP 18; TEMP 36.9; O2SAT 99; BMI 25.9
[2024-04-29] MEDS: Ondansetron ODT 4 MG TAB.RAPDIS TRANSLINGU (10:56)
[2024-04-29 12:07] LABS: MANUAL DIFF FLAG NO
[2024-04-29 12:10] LABS: Basophils Percent Auto 0.2 % (0-2); Hematocrit 41.3 % (37.0-47.0); Hemoglobin 13.4 g/dl (12.0-16.0); Imm Gran Abs Auto 0.03 X10*3/uL (0.00-0.03); Imm Gran Pct Auto 0.5 % (0.0-0.4); Lymphocytes Absolute Auto 0.4 X10*3/uL (1.2-4.9); Lymphocytes Percent Auto 6.3 % (20-40); Mean Corpuscular HGB Conc 32.4 g/dl (31.0-35.0); Mean Corpuscular Hemoglobin 29.9 pg (27.0-33.0); Mean Corpuscular Volume 92.2 fL (80.0-98.0); Mean Platelet Volume 8.6 fL (9.4-12.3); Monocytes Absolute Auto 0.3 X10*3/uL (0.1-1.2); Neutrophils Absolute Auto 5.1 x10*3/uL (2.0-8.3); Platelet Count 323 X10*3/uL (160-400); Red Blood Count 4.48 X10*6/uL (4.20-5.50); White Blood Count 5.8 X10*3/uL (4.8-10.8)
[2024-04-29 12:31] LABS: Alanine Aminotransferase 30 U/L (0-31); Albumin Level 4.4 g/dL (3.5-5.0); Alkaline Phosphatase 100 U/L (39-117); Anion Gap 9 (12-20); Aspartate Amino Transferase 28 U/L (5-31); Bilirubin Total 0.5 mg/dL (0.0-1.0); Blood Urea Nitrogen 15 mg/dL (9-16); Calcium 9.7 mg/dL (8.4-10.2); Carbon Dioxide 29 mmol/L (22-29); Chloride 105 mmol/L (96-108); Creatinine Clr Calc Pharmacy 85.2; Estimated Glomerular Filt Rate > 60; Glucose Random 114 mg/dL (60-115); Potassium 3.9 mmol/L (3.3-5.1); Sodium 139 mmol/L (135-145); Total Protein 7.5 g/dL (6.5-8.0)
--- NOTE | 2024-04-29 19:23 | PC.NURSE ---
lwbs at 1830 per comments
== END 2024-04-29 19:26 | disposition left against medical advice (07) ==
LOC: HO.ED 19:24
PROVIDERS: Emergency Provider Emergency Medicine; PCP Internal Medicine
DX: R11.2 Nausea with vomiting, unspecified (principal); Z79.899 Other long term (current) drug therapy
CPT/HCPCS: 36415; 80053; 85025; 99281

== ENCOUNTER 2024-11-17 10:21 | Outpatient (REF) | payer OTHER, SELFPAY ==
--- OUTSIDE RECORDS SUMMARY | 2024-11-17 11:19 | XMS_ITS | Clinical Summary ---
Author Organization [employer] Address [address] [place] [address] [address] [place] [address] Care Team Providers Care Vegetable Sorter Name Role Phone Unavailable Primary Care Provider Unavailabl e Allergies No known active allergies Medications hydroCHLOROthia zide (HYDRODiuril) 12.5 MG tablet TAKE 1 TABLET BY MOUTH EVERY DAY IN THE MORNING FOR 90 DAYS 06/06/2022 Active amitriptyline (Elavil) 10 MG tablet Take 10 mg by mouth at bedtime. 10/22/2022 Active sertraline (Zoloft) 25 MG tablet TAKE 1 TABLET BY MOUTH EVERY DAY FOR 90 DAYS 11/07/2022 Active Social History Tobacco Use Types Packs/Day Years Used Date Smoking Tobacco: Never Smokeless Tobacco: Never Tobacco Cessation:Counseling Given: Not Answered Alcohol Use Standard Drinks/Week Comments Defer 0 (1 standard drink = 0.6 oz pur e alcohol) Comments Unknown Sex and Gender Information Value Date Recorded Sex Assigned at Female 02/27/2022 10:24 AM EDT Legal Sex Female 10:24 AM EDT Gender Identity Female 12/19/2022 9:11 AM EDT Sexual Orientation Choose not to disclose 2022 9:11 AM EDT Last Filed Vital Signs Vital Sign Reading Time Taken Comments Blood Pressure 134/68 06/04/2024 10:03 AM EST Pulse 65 06/04/2024 10:03 AM EST Temperature - - Respiratory Rate - - Oxygen Saturation - - Inhaled Oxygen Concentration - - Weight - - Height - - Body Mass Index - - Plan of Treatment Health Maintenance Due Date Last Done Comments CT Colonography 1964 Colonoscopy 1964 Colorectal Cancer Screening 1964 Depression Screening 1964 FIT DNA/Cologuard 1964 FIT 1964 FOBT 1964 HIV Screening 1964 SDOH Screening 1964 Sigmoidoscopy 1964 Disability Screening 1964 Alcohol/Substance Use Screening 1976 Hepatitis C Screening 1982 Pap Smear 1985 Cervical Cancer Screening 1994 HPV/Cotest 1994 Mammogram 2004 Pneumococcal Vaccine: 50+ Years (1 of 1 - PCV) 2014 Zoster Vaccines (1 of 2) 2014 COVID-19 Vaccine (4 - season) 2023 03/23/2021, 09/18/2020, 08/26/2020 Dental Oral Exam 12/03/2024 06/04/2024, 11/2023, 01/03/2023, Additional history exists Dental Prophylaxis 12/03/2024 06/04/2024, 0 09/05/2023, 01/22/2023, Additional history exists Influenza Vaccine (#1) 2024 Tobacco Screening 06/04/2025 06/04/2024 Dental X-Ray: Bitewings 06/05/2025 06/04/19, 01/03/2023, 08/25/2013, Additional history exists Dental X-Ray: Full Mouth 01/04/2026 01/03/2023, 0706/2011 DTaP/Tdap/Td Vaccines (3 - Td or Tdap) 07/09/2031 07/08/2021, 02/28/2016 RSV Patients and Patients Aged 60 years or older (1 - 1-dose 75+ series) 09/09/2039 HIB Vaccines Aged Out No longer eligi ble based on patient's age to complete this topic HPV Vaccines Aged Out No longer eligi ble based on patient's age to complete this topic Hepatitis A Vaccines Aged Out No long er eligible based on patient's age to complete this topic Hepatitis B Vaccines Aged Out No long er eligible based on patient's age to complete this topic IPV Vaccines Aged Out No longer eligi ble based on patient's age to complete this topic Meningococcal B Vaccine Aged Out No l onger eligible based on patient's age to complete this topic Meningococcal Vaccine Aged Out No angélica charity eligible based on patient's age to complete this topic RSV under 20 months Aged Out No longe r eligible based on patient's age to complete this topic Rotavirus Vaccines Aged Out No longer eligible based on patient's age to complete this topic Procedures Procedure Name Priority Date/Time Associated Diagnosis Comments PROPHYLAXIS - ADULT Routine 06/04/2024 1 0:00 AM EST BITEWINGS - 4 RADIOGRAPHIC IMAGES Routine 06/04/2024 10:00 AM EST PERIODIC ORAL EVALUATION - ESTABLISHED PATIENT Routine 06/04/2024 10:00 AM EST INTRAORAL - COMPLETE SERIES OF RADIOGRAPHIC IMAGES Routine 01/03/2023 2:00 PM EDT from Last 3 Months or Most Recently Relevant to Health Maintenance Insurance DENTAL - HSN PARTIAL (MEDICAID) [facility]
== END 2024-11-17 10:22 | disposition home or self-care (01) ==
LOC: HO.MAMMO 10:21
PROVIDERS: PCP Internal Medicine; Visit Provider Internal Medicine
DX: Z12.31 Encounter for screening mammogram for malignant neoplasm of breast (principal)
CPT/HCPCS: 77063; 77067

== ENCOUNTER → 2024-11-17 10:30 | Outpatient (BNV) | payer OTHER, SELFPAY | PROVIDERS: PCP Internal Medicine; Visit Provider Radiology Body Imaging | DX: Z12.31 Encounter for screening mammogram for malignant neoplasm of breast (principal) | CPT/HCPCS: 77063; 77067 ==

== ENCOUNTER 2025-01-07 10:54 | Outpatient (AMB) | payer OTHER, SELFPAY ==
--- NOTE | 2025-01-07 11:00 | MHC.OFFVIS ---
Vital Signs 01/07/25 11:04 Height 5 ft 3 in Weight 154 lb 5.177 oz BMI 27.3 BP 154/86 H Blood Pressure Location Lt brachial Position Sitting Intake Visit Reasons: [place] Screening Intake Note: Sam presents in office today for colonoscopy screening. CC: Patient c/o a lot of gas beginning last year. She started taking probiotic and it has gotten better. She also reports her stomach having a crampy feeling after eating. She also reports occasionally late at night having to seat on the toilet for hours sweating, with abd cramps, and nausea, and when finally she is able to have a BM is liquid. 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 She is aware to inform any 1st degree relatives of her polyp so they can be screened by age 45. She is also quite agreeable to a 3 year follow-up as she is motivated to remain colon cancer free. Her bowels have returned to normal after the procedure. She asked for some Education about diverticulosis and this is provided. ROV 3 years. LABS: NEEDS UPDATE RELEVANT PMX TODAY'S VISIT She is suffering from a great deal of gas and bloating with belching. She stared a probiotic with some improvement. She was eating a lot of low sugar snacks, so ETOH sugars are a likey source of this. I give her the name of these and she will avoid for 8 weeks and we will decide then if more testing needed. She denies any cardiac or respiratory problems. No ID problems. She had 2 TA's in 2018, no known FHX of crc or polyps. [facility] Medical History Annual physical exam COVID-19 virus infection Laceration of face Encounter for annual routine gynecological examination Scabies Malignant melanoma Pernicious anemia Hypercholesterolemia Anxiety and depression Vitamin D deficiency Leukopenia Carpal tunnel syndrome Herpes genitalis TMJ (dislocation of temporomandibular joint) Surgical History H/O colonoscopy History of removal of skin mole History of endometrial ablation History of tubal ligation History of section Family History Father Lung cancer Asbestos exposure Mother Myocardial infarction Heart disease Maternal Uncle Skin cancer Paternal Aunt Hx of blood clots Paternal Uncle Hx of blood clots Social History Housing: House Are you a primary healthcare receptionist to a significant other at home: No Do you presently have visiting nurse or other home services: No Alcohol intake: current Alcohol intake frequency: 0-2 drinks per day Patient Tobacco Use Status: Former Tobacco user Years Smoked: quit 25 years old e-Cigarette/Vaping Use: Never Used Second Hand Smoke Exposure: No service: No Current occupational status: employed Current occupational exposures/hazards: No Sexual orientation: Straight/Heterosexual Gender identity: Female Cognitive needs: No Hearing needs: No Vision needs: Yes Review of Systems Const Denies fatigue, Denies fever(s), Denies night sweats, Denies poor appetite and Denies weight loss Eyes Details: glasses Reports requires corrective lenses ENT Reports Normal hearing present, Denies dental pain, Denies dysphagia, Denies hearing loss, Denies mouth pain, Denies odynophagia, Denies throat swelling, Denies tongue swelling and Reports other (Dentition adequate) Card Reports no additional complaints Resp Reports no additional complaints GI Details: Denies abdominal pain, Denies melena, Reports bloating, Denies hematochezia, Denies constipation, Denies GI cramping, Denies dysphagia, Reports excessive flatus, Denies early satiety, Denies heartburn, Denies diarrhea, Denies nausea, Denies odynophagia, Denies vomiting and Denies hematemesis Skin/Breast Denies pruritus, Denies lesions, Denies rash and Denies jaundice Neuro Reports Normal hearing present and Denies Abnormal speech present Endo Denies fatigue Aller/Immun Denies throat swelling and Denies tongue swelling Physical Exam Vital Signs: Last Vital Signs BP 154/86 H 01/07/25 11:04 BMI result Body Mass Index 27.3 Const General: cooperative, no acute distress, well developed and well groomed Nutritional Appearance: average body habitus and well nourished Orientation/consciousness: oriented to person, oriented to place and oriented to time Limitations: No language barrier HEENT Head: Yes normocephalic and Yes atraumatic Eyes General: appearance normal, both eyes and all related structures Pupils: Equal, round and reactive pupils present Neck Neck: Yes normal visual inspection and Yes no lymphadenopathy Thyroid: Thyroid normal Resp Effort & Inspection: normal respiratory effort and able to speak in complete sentences Auscultation: clear to auscultation bilaterally Cardio Rate: regular rate Rhythm: regular rhythm Heart sounds: Normal, physiologic split S2 sound present Peripheral pulses: radial pulses present and posterior tibial pulses present GI Inspection: No distended and No Abdominal panniculus present Palpation (GI): Soft to palpation, nontender, no guarding, not rigid and No hepatosplenomegaly present Percussion: Yes normal to percussion Auscultation: normal bowel sounds Rectal Exam - Female: deferred Skin General skin exam: no rashes or lesions noted, turgor normal, skin not dry, no jaundice, No spider nevi and no striae Rashes: no rashes Nails: normal Neuro General: oriented to person, oriented to place and oriented to time Cranial nerves: Yes Equal, round and reactive pupils present and Yes Normal hearing present Speech: No Abnormal speech present Extrem General: Yes normal to inspection, No clubbing, No cyanosis and No edema Psych Appearance: grossly normal and well kempt Mental Status: mental status grossly normal Speech and movement: Normal speech and movement present Affect: normal affect Attitude: cooperative Thought process: Normal thought process present and not confabulating Thought content: Normal thought content present Insight: Good insight present (Psych) Judgement: Good judgement present (Psych) Assessment & Plan Assessment & Plan (1) Tubular adenoma of colon: Comment: 2018 scope 2 large, 2021 scope 1 greater than 1 Cm TA repeat 3 years Code(s): D12.6 - Benign neoplasm of colon, unspecified Category: Medical (2) Pre-op examination: Code(s): Z01.818 - Encounter for other preprocedural examination Category: Medical (3) Abdominal bloating: Code(s): R14.0 - Abdominal distension (gaseous) Category: Medical (4) Elevated alkaline phosphatase level: Code(s): R74.8 - Abnormal levels of other serum enzymes Category: Medical Plan She is suffering from a great deal of gas and bloating with belching. She stared a probiotic with some improvement. She was eating a lot of low sugar snacks, so ETOH sugars are a likey source of this. I give her the name of these and she will avoid for 8 weeks and we will decide then if more testing needed. She denies any cardiac or respiratory problems. No ID problems. She had 2 TA's in 2018, no known FHX of crc or polyps. (due to the elevated alk-phos coming back after the visit prior to me closing the note I ordered an ultrasound as well) Orders: Orders Comprehensive Met. Panel Today D12.6 - Benign neoplasm of colon, unspecified, Z01.818 - Encounter for other preprocedural examination Transglutaminase IgA Today R14.0 - Abdominal distension (gaseous) Transglutaminase Ab IgG Today R14.0 - Abdominal distension (gaseous) US abdomen complete Today R14.0 - Abdominal distension (gaseous), R74.8 - Abnormal levels of other serum enzymes Referrals GI Procedure Notification D12.6 - Benign neoplasm of colon, unspecified Medications: New peg 3350-electrolytes 236-22.74-6.74 -5.86 gram (Golytely) until fecal effluent is clear; do not exceed a total volume of 2,000 mL 240 mL PO Q10M 4,000 mL 0RF 1 day Z12.11 - Encounter for screening for malignant neoplasm of colon Coding Level of Care Code Est Pt Level 4 (32711) Diagnoses Tubular adenoma of colon D12.6 Pre-op examination Z01.818 Abdominal bloating R14.0 Elevated alkaline phosphatase level R74.8 Time Spent (min) 35
[2025-01-07 11:04] VITALS: BP 154/86; BMI 27.3
--- OUTSIDE RECORDS SUMMARY | 2025-01-07 13:51 | XMS_ITS | Clinical Summary ---
Author Organization [employer] Address [address] [place] [address] [address] [place] [address] Care Team Providers Care Clinical Research Nurse Coordinator Name Role Phone Unavailable Primary Care Provider [...] EVERY DAY FOR 90 DAYS 11/07/2022 Active Active Problems No known active problems Encounters Date Type Department Care Team Description 12/30/2024 9:30 AM EDT Office Visit [facility] [address] [place] [address] Heraclio Yee DDS 12/24/2024 Travel 12/23/2024 11:00 AM EDT Office Visit [facility] [address] [place] [address] Abdon Schaffer Dental calculus (Primary Dx) 12/23/2024 Travel from Last 3 Months Social History Tobacco Use Types Packs/Day Years [...] Sign Reading Time Taken Comments Blood Pressure 110/80 12/30/2024 9:43 AM EDT Pulse 65 12/23/2024 11:06 AM EDT Temperature - - Respiratory Rate - - Oxygen Saturation - - Inhaled Oxygen Concentration - - Weight - - Height - - Body Mass Index - - Plan of Treatment Upcoming Encounters Date Type Department Care Team (Late st Contact Info) Description 06/29/2025 8:45 AM EST Office Visit [facility] [address] [place] [address] Abdon Schaffer Health Maintenance Due Date Last Done Comments [...] of 2) 2014 COVID-19 Vaccine (4 - 2024- season) 2024 03/23/2021, 09/18/2020, 08/26/2020 Influenza Vaccine (#1) 2024 Dental X-Ray: Bitewings 06/05/2025 06/04/19 25, 01/03/2023, 08/25/2013, Additional history exists Dental Oral Exam 06/26/2025 12/23/2024, 08/2024, 09/05/2023, Additional history exists Dental Prophylaxis 06/26/2025 12/23/2024, 0 06/04/2024, 09/05/2023, Additional history exists Tobacco Screening 12/30/2025 12/30/2024 Dental X-Ray: Full Mouth 01/04/2026 01/03/2023, 07/06/2011 DTaP/Tdap/Td Vaccines (3 - Td or Tdap) [...] Procedure Name Priority Date/Time Associated Diagnosis Comments CASE PRESENTATION, DETAILED AND EXTENSIVE TREATMENT PLANNING Routine 12/30/2024 9:30 AM EDT 12 B(V) RESIN-BASED COMPOSITE - 1 SURF, POSTERIOR Routine 12/30/2024 9:30 AM EDT PERIODIC ORAL EVALUATION - ESTABLISHED PATIENT Routine 12/23/2024 11:00 AM EDT ORAL HYGIENE INSTRUCTIONS Routine 2024 11:00 AM EDT PROPHYLAXIS - ADULT Routine 12/23/2024 1 1:00 AM EDT CASE PRESENTATION, DETAILED AND EXTENSIVE TREATMENT PLANNING Routine 12/23/2024 11:00 AM EDT BITEWINGS - 4 RADIOGRAPHIC IMAGES Routine 06/04/2024 10:00 AM EST INTRAORAL - COMPLETE SERIES OF RADIOGRAPHIC IMAGES Routine 01/03/2023 2:00 PM EDT from Last 3 Months or Most Recently Relevant to Health Maintenance Insurance DENTAL - [place]SN PARTIAL (MEDICAID) [facility]
== END 2025-01-07 11:46 | disposition home or self-care (01) ==
PROVIDERS: PCP Internal Medicine; Visit Provider Nurse Practitioner
DX: Z01.818 Encounter for other preprocedural examination (principal); Z12.11 Encounter for screening for malignant neoplasm of colon; Z86.0101 Personal history of adenomatous and serrated colon polyps; R14.0 Abdominal distension (gaseous); R74.8 Abnormal levels of other serum enzymes
CPT/HCPCS: 99214

== ENCOUNTER 2025-01-07 10:54 | Outpatient (REF) | payer OTHER, SELFPAY ==
[2025-01-07 13:02] LABS: Alanine Aminotransferase 34 U/L (0-31); Albumin Level 4.7 g/dL (3.5-5.0); Alkaline Phosphatase 120 U/L (39-117); Anion Gap 10 (12-20); Aspartate Amino Transferase 25 U/L (5-31); Blood Urea Nitrogen 15 mg/dL (9-16); Calcium 9.9 mg/dL (8.4-10.2); Carbon Dioxide 31 mmol/L (22-29); Chloride 102 mmol/L (96-108); Estimated Glomerular Filt Rate > 60; Potassium 4.2 mmol/L (3.3-5.1); Sodium 139 mmol/L (135-145); Total Protein 7.8 g/dL (6.5-8.0)
[2025-01-09 16:09] LABS: Transglutaminase Ab IgG <1.0 U/mL
== END 2025-01-07 10:55 | disposition home or self-care (01) ==
LOC: HO.LAB 10:54
PROVIDERS: PCP Internal Medicine; Visit Provider Nurse Practitioner
DX: D12.6 Benign neoplasm of colon, unspecified (principal); R14.0 Abdominal distension (gaseous); R74.8 Abnormal levels of other serum enzymes; Z12.11 Encounter for screening for malignant neoplasm of colon; Z01.818 Encounter for other preprocedural examination
CPT/HCPCS: 36415; 80053; 86364; 99212

== ENCOUNTER 2025-03-09 08:27 | Day surgery (SDC) | payer OTHER, SELFPAY ==
--- OUTSIDE RECORDS SUMMARY | 2025-02-03 07:40 | XMS_ITS | Clinical Summary ---
Author Organization [employer] Address [address] [place] [address] [address] [place] [address] Care Team Providers Care Commutator V Ring Assembler Name Role Phone Unavailable Primary Care Provider [...] Description 12/30/2024 9:30 AM EDT Office Visit [facility] ADULT [facility] [address] [place] [address] Heraclio Yee DDS 12/24/2024 Travel 12/23/2024 11:00 AM EDT Office Visit [facility]ULT [facility] [address] [place] [address] Abdon Schaffer Dental calculus (Primary Dx) 12/23/2024 [...] Description 06/29/2025 8:45 AM EST Office Visit [facility] ADULT [facility] [address] [place] [address] Abdon Schaffer Health Maintenance Due Date Last [...] Maintenance Insurance DENTAL - HSN PARTIAL (MEDICAID) [facility]
--- NOTE | 2025-03-04 13:15 | HO.ANESPROP2 ---
Documented by User: Henrietta [place] NP 03/04/25 13:16 HPI - Anesthesia Eval Consult details Narrative: 59yo F for Colonoscopy TMJ PMFSH Active Problems Active Problems: All Active Problems Elevated alkaline phosphatase level (Acute) Abdominal bloating (Acute) Pre-op examination (Acute) Encounter for well woman exam with routine gynecological exam (Acute) Bilateral carpal tunnel syndrome (Acute) Annual physical exam (Acute) Ringing in ears (Acute) Decreased hearing of both ears (Acute) Overweight (BMI 25.0-29.9) (Acute) Generalized anxiety disorder (Acute) Tubular adenoma of colon (Acute) Ganglion cyst of tendon sheath of right hand (Acute) Hypertension (Acute) Malignant melanoma (Acute) Vitamin D deficiency (Acute) Pernicious anemia (Acute) Hypercholesterolemia (Acute) Past Medical History Medical History (Updated 03/09/25 @ 09:08 by Merna Goodson RN) HTN (hypertension) Malignant melanoma Pernicious anemia Hypercholesterolemia Anxiety and depression Vitamin D deficiency Leukopenia Carpal tunnel syndrome Herpes genitalis TMJ (dislocation of temporomandibular joint) Family History Family History Father Lung cancer Asbestos exposure Mother Myocardial infarction Heart disease Maternal Uncle Skin cancer Paternal Aunt Hx of blood clots Paternal Uncle Hx of blood clots Family history of problems with anesthesia: No Surgical History Surgical History (Updated 03/09/25 @ 09:09 by Merna Goodson RN) History of surgery H/O colonoscopy History of removal of skin mole History of endometrial ablation History of tubal ligation History of section History of Problems with Anesthesia: No Social History Social History Housing: House Are you a primary intensive care ambulance paramedic to a significant other at home: No Do you presently have visiting nurse or other home services: No Alcohol intake: current Alcohol intake frequency: 0-2 drinks per day Patient Tobacco Use Status: Former Tobacco user Years Smoked: quit 25 years old e-Cigarette/Vaping Use: Never Used Second Hand Smoke Exposure: No Use of substances other than those prescribed or required for medical reasons: Yes Are you DNR?: No Advance Directives: No Advance Directives Information Provided: Yes Patient : No : No service: No Current occupational status: employed Current occupational exposures/hazards: No Sexual orientation: Straight/Heterosexual Gender identity: Female Cognitive needs: No Hearing needs: No Vision needs: Yes Meds Allergies Allergy/AdvReac Type Severity Reaction Status Date / Time bupropion AdvReac Intermediate palpitation Verified 01/07/25 11:08 s Assessment and Plan Assessment Anesthesia Assessment: Chart Reviewed Final Anesthetic Review Family History of Problems with Anesthesia: No History of Problems with Anesthesia: No Documented by User: James Reyna MD 03/09/25 10:18 [facility] Past Medical History Medical History (Updated 03/09/25 @ 09:08 by Merna Goodson RN) HTN (hypertension) Malignant melanoma Pernicious anemia Hypercholesterolemia Anxiety and depression Vitamin D deficiency Leukopenia Carpal tunnel syndrome Herpes genitalis TMJ (dislocation of temporomandibular joint) Family History Family History Father Lung cancer Asbestos exposure Mother Myocardial infarction Heart disease Maternal Uncle Skin cancer Paternal Aunt Hx of blood clots Paternal Uncle Hx of blood clots Surgical History Surgical History (Updated 03/09/25 @ 09:09 by Merna Goodson RN) History of surgery H/O colonoscopy History of removal of skin mole History of endometrial ablation History of tubal ligation History of section Social History Social History Housing: House Are you a primary intensive care ambulance paramedic to a significant other at home: No Do you presently have visiting nurse or other home services: No Alcohol intake: current Alcohol intake frequency: 0-2 drinks per day Patient Tobacco Use Status: Former Tobacco user Years Smoked: quit 25 years old e-Cigarette/Vaping Use: Never Used Second Hand Smoke Exposure: No Use of substances other than those prescribed or required for medical reasons: Yes Are you DNR?: No Advance Directives: No Advance Directives Information Provided: Yes Patient : No : No service: No Current occupational status: employed Current occupational exposures/hazards: No Sexual orientation: Straight/Heterosexual Gender identity: Female Cognitive needs: No Hearing needs: No Vision needs: Yes Meds Allergies Allergy/AdvReac Type Severity Reaction Status Date / Time bupropion AdvReac Intermediate palpitation Verified 01/07/25 11:08 s Active Medications: Current Medications Lactated Ringer's (Lr) 1,000 mls @ 50 mls/hr IVCONT .Q20H THANIA Exam Exam Date and Time: January 09, 2022 0943 Height,Weight and Vital Signs: Height 5 ft 3 in Weight 69.4 kg Airway Mallampati Class: II TM Dist: >3cm Neck ROM: Full Heart: rrr Lungs: cta Assessment and Plan Final Anesthetic Review NPO: Yes ASA Class: II Final Preanesthetic Review: No Changes in Pt Med Stat, Meds/Allgs Chart Reviewed and Consent Obtained/Reviewed Patient Risk: Intermediate Procedure Risk: Intermediate Anesthetic Plan Anesthetic Plan: TIVA Disposition: Standard PACU
[2025-03-05 09:37] VITALS: BMI 27.3
--- NOTE | 2025-03-09 08:10 | MHC.SHP ---
Pre-Procedural Eval Section A - 24 Hr Update-Section A only Date of Service: 03/09/25 The patient is an INPATIENT: No The patient has been examined within 24 hours of the surgical procedure. The History & Physical has been completed within 30 days and I have reviewed it.: No Section B - Complete if H&P > 30 days Chief Complaint: Surveillance for colon polyps Relevant Family History (Specify if Yes): No Relevant Social History: Tobacco Use (Former smoker) Present Medications: see Short Stay Collaborative assessment Medical History: Significant History (Malignant melanoma Pernicious anemia Hypercholesterolemia Anxiety and depression Vitamin D deficiency Leukopenia Carpal tunnel syndrome Herpes genitalis TMJ (dislocation of temporomandibular joint)) History of Previous Operations: Relevant previous surgery/procedure and date(s) (H/O colonoscopy History of removal of skin mole History of endometrial ablation History of tubal ligation History of section) Allergies: Allergies Allergy/AdvReac Type Severity Reaction Status Date / Time bupropion AdvReac Intermediate palpitation Verified 01/07/25 11:08 s Review of Systems Sugical H&P ROS: Negative: Constitution, Cardiovascular, Respiratory and Gastrointestinal Exam Surgical H&P Exam: Normal: Heart, Normal: Lungs, Normal: Extremities and Normal: Abdomen Plan Diagnosis/Plan: Unchanged I have reviewed the history and physical and performed a pertinent physical examination on my patient. No changes have occurred unless specified. Time Spent With Patient Time: Total time managing care of this patient today ____ minutes.
[2025-03-09 09:00] VITALS: BMI 26.4
[2025-03-09 09:02] VITALS: BP 104/82; PULSE 63; RESP 16; TEMP 36.4; O2SAT 98
[2025-03-09] MEDS: Lactated Ringers 1,000 ML 100 ML IVCONT (09:19)
--- NOTE | 2025-03-09 11:15 | HO.OPN-COLON ---
Colonoscopy Operative Note Operative Note Date of Service: 03/09/25 Narrative: COLONOSCOPY TILL CECUM WITH SNARE POLYPECTOMY Pre-op diagnosis: Surveillance for colon polyps. Post-op diagnosis:? Colon polyp, Diverticulosis, hemorrhoids Endoscopist:? Marlena Thibodeaux MD Anesthesia:?MAC Consent: Indications for the procedure and potential complications of bleeding, perforation, reaction to medications and missed diagnosis were discussed with the patient and informed consent was obtained. Instrument: Olympus PCF H 190 L variable stiffness pediatric colonoscope Monitoring: Vital signs and clinical assessment, intermittent blood pressure monitoring, continuous EKG monitoring, Pulse oximetry and Carbon Dioxide monitoring were done throughout the procedure. Please see anesthesia flowsheet. Colon withdrawl time was 13 minutes. Procedure: The patient was placed in the left lateral decubitis position and pre-procedure medications were administered. After a digital rectal examination of the ano-rectum, the video colonoscope was inserted into the rectum and advanced through the colon to the cecum. The colonoscope was slowly withdrawn in a retrograde panoramic fashion and the colon mucosa was carefully examined including a retroflexed view of the rectum. Findings and interventions are described below. Procedure Difficulty: Colon was long and tortuous and there was some loop formation. Findings: Terminal Ileum: Not evaluated Cecum: A 6-7 mm sessile polyp - removed with a cold snare. Ascending Colon: Normal Transverse Colon: Normal Descending Colon: Moderate diverticulosis Sigmoid Colon: Moderate diverticulosis Rectum: Normal Ano-rectum: Small internal hemorrhoids and hypertrophied anal papilla Colon preparation: Excellent, . [place] Bowel Preparation Scale Right colon; 3 Transverse colon: 3 Left colon; 3 (0 = Unprepared colon segment with mucosa not seen due to solid stool that cannot be cleared. 1 = Portion of mucosa of the colon segment seen, but other areas of the colon segment not well seen due to staining, residual stool and/or opaque liquid. 2 = Minor amount of residual staining, small fragments of stool and/or opaque liquid, but mucosa of colon segment seen well. 3 = Entire mucosa of colon segment seen well with no residual staining, small fragments of stool or opaque liquid) Impression and Post Procedure Diagnosis: Colonoscopy Findings: One small polyp was removed Moderate diverticulosis seen in the left colon Small hemorrhoids on retroflexed exam. Plan: I will send a letter with biopsy results. Repeat Colonoscopy in 5 years if polyps are adenomatous and due to history of adenomatous colon polyps. Above findings were reviewed with the patient and relevant handouts were given and the discharge area.
[2025-03-09 11:18] VITALS: BP 175/77; PULSE 77; RESP 20; TEMP 36.1; O2SAT 99
[2025-03-09 11:29] VITALS: BP 159/72; PULSE 75; RESP 17; TEMP 36.1; O2SAT 100
== END 2025-03-09 11:58 | disposition home or self-care (01) ==
PROVIDERS: PCP Internal Medicine; Visit Provider Internal Medicine Gastroenterology
PROC: 0DJD8ZZ Inspection of Lower Intestinal Tract, Via Natural or Artificial Opening Endoscopic (ICD-10-PCS; CPT 45378; principal; 2025-03-09 10:20)
DX: Z12.11 Encounter for screening for malignant neoplasm of colon (principal); Z86.0101 Personal history of adenomatous and serrated colon polyps; K64.8 Other hemorrhoids; D12.0 Benign neoplasm of cecum; K57.30 Diverticulosis of large intestine without perforation or abscess without bleeding
CPT/HCPCS: 45385; 88305; J2003; J2250; J2704

== ENCOUNTER → 2025-03-09 08:27 | Outpatient (BNV) | payer OTHER, SELFPAY | PROVIDERS: PCP Internal Medicine; Visit Provider Internal Medicine Gastroenterology | DX: Z12.11 Encounter for screening for malignant neoplasm of colon (principal); K63.5 Polyp of colon; K57.90 Diverticulosis of intestine, part unspecified, without perforation or abscess without bleeding; K64.8 Other hemorrhoids | CPT/HCPCS: 45385 ==